=== PATIENT | male | born 1980 | race Caucasian/White ===

== ENCOUNTER → 2019-11-24 16:11 | Outpatient (BNVA) | payer MEDICAID, SELFPAY | PROVIDERS: Family Provider Family Medicine; PCP Family Medicine; Visit Provider Nurse Practitioner Family | DX: R50.9 Fever, unspecified; J01.40 Acute pansinusitis, unspecified | CPT/HCPCS: 87804 ==

== ENCOUNTER 2020-03-19 17:22 | Emergency (ER) | payer MEDICAID, SELFPAY ==
[2020-03-19 18:09] VITALS: BP 183/109; PULSE 73; RESP 18; TEMP 36.8; O2SAT 96; BMI 34.7
--- NOTE | 2020-03-19 20:26 | PC.NURSE ---
Addendum entered by Sherine Longo RN 03/19/20 20:29: patient states his back started hurting about three weeks ago and has progressively gotten worse. Patient states in the last few days it has been much more painful in his lower back. Patient states he has been to a chiropractor but it is not a sustained relief method. Patient states he has pain radiating down his right leg to the knee area. Original Note: patient states his back started hurting about two weeks ago and has progressively gotten worse. Patient states in the last few days it has been much more painful in his lower back. Patient states he has been to a chiropractor but it is not a sustained relief method. Patient states he has pain radiating down his left leg to the knee area.
--- NOTE | 2020-03-19 20:26 | W.ED.BACK ---
HPI - Back Pain/Injury General: Chief Complaint: Back Pain/Injury Stated Complaint: LOWER BACK PAIN Time Seen by Provider: 03/19/20 20:24 Source: patient Mode of arrival: ambulatory Limitations: no limitations History of Present Illness: HPI Narrative: Patient comes in today with complaints of low back pain radiating down his right leg. Patient has a history of back pain but is been worse over the last 3 weeks. Patient has sought treatment with chiropractor without any relief. Patient has muscle tenderness on palpation of the lowers right lumbar area. Patient appears well. Patient appears in mild to moderate pain. Review of Systems General: Reports: 10 or more systems reviewed and unremarkable except in HPI and below Musc: Reports: back pain PFS ED PFSH: Social History (Updated 11/24/19 @ 16:11 by Vanessa Mckinnon LPN) Smoking and tobacco status: never smoked Alcohol intake: current Alcohol intake frequency: holidays/special occasions only Physical Exam Const: COMMON NORMALS: no acute distress and patient oriented x3 GENERAL APPEARANCE: cooperative HENMT: COMMON NORMALS: normocephalic, TM's normal bilaterally and Normal external nose present HEAD & SCALP: normal to inspection and normocephalic NOSE: Normal external nose present TYMPANIC MEMBRANE: TM's normal bilaterally MOUTH: Normal oral and palatal mucosa present THROAT: posterior oropharynx normal Eye: GENERAL EYE: appearance normal, both eyes and all related structures Neck/C-Spine: COMMON NORMALS: full ROM Lymph: LYMPHATIC: no lymphadenopathy noted Chest: COMMONS NORMALS: normal inspection of the chest Resp: COMMON NORMALS: normal respiratory effort EFFORT & INSPECTION: Yes able to speak in complete sentences Cardio: COMMON NORMALS: regular rate and regular rhythm RATE: regular rate RHYTHM: regular rhythm GI: COMMON NORMALS: non-tender : COMMON NORMALS: Yes no CVA tenderness BLADDER/KIDNEY EXAM: Yes no CVA tenderness Back/Pelvis: COMMON NORMALS: no CVA tenderness LUMBAR SPINE/LOWER BACK: Yes lumbar spinal tenderness Lumbar spinal tenderness location: L4 Extremity: COMMON NORMALS: normal to inspection Neuro: COMMON NORMALS: patient oriented x3 and moves all extremities Psych: COMMON NORMALS: mental status grossly normal and cooperative Skin: COMMON NORMALS: no rashes or lesions noted GENERAL SKIN EXAM: no rashes or lesions noted Course Vital Signs: Vital signs: Vital Signs Temperature 98.2 F 03/19/20 18:09 Pulse Rate 69 05/22/20 20:28 Respiratory Rate 16 03/19/20 20:28 Blood Pressure 140/86 03/19/20 20:28 Pulse Oximetry 96 03/19/20 20:28 MDM - Back Pain/Injury MDM Narrative: Medical decision making narrative: Patient comes in today for complaints of low back pain for about the last 3 weeks. 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 Patient appears well. Vital signs are normal except for some mild elevation in blood pressure. Patient has pain with leg lift on both the lower extremities at about 30 degrees. Distal pulses to lower extremities are normal. Patient has palpable tenderness around the L4-L5 area of the lumbar spine. X-ray of the spine notes no fracture and may be some mild disc loss at L4-L5. Differential diagnosis includes lumbar strain, intervertebral disc disease, facet arthropathy. Reviewed exam with patient with recommendations for treatment and follow-up. Patient reported understanding and agreed to plan. Discharge Plan Discharge Patient Disposition: Home, Self-Care Clinical Impression: Lumbar radiculopathy Condition: Stable Prescriptions: New diclofenac sodium 75 mg tablet,delayed release (DR/EC) 75 mg PO BID Qty: 20 RF: 0 cyclobenzaprine 10 mg tablet 10 mg PO Q8H Qty: 30 RF: 0 Discharge Orders: Discharge Order (Routine); Ordered 03/19/20 Ordered By: Ganesh Sheikh Discharge Diet: Usual diet Discharge Activity: Increase activity as tolerated Patient Instructions: Back Pain (ED) Activity Restrictions/Additional Instructions: Activity as tolerated. Drink plenty of water with medication. Follow-up with primary care in 1 week for recheck and further evaluation as needed. Return to the ER for high fever or changes in bowel or bladder habits. Back pain often will usually wax and wane and for the most part will resolve on its own without the use of medication. It is important to follow-up with primary care for further treatment and evaluation especially for persistent back pain. At this time x-ray showed no significant abnormality to the spine. Soft tissue is often hard to seen on x-rays and a disc bulge will need to be evaluated per MRI. A primary care provider can assist with this treatment and plan. Coding Level of Care Code ED [employer] Consultant for [facility] Fwd Exam Comprehensive
[2020-03-19 20:28] VITALS: BP 140/86; PULSE 69; RESP 16; O2SAT 96
--- NOTE | 2020-03-19 20:33 | XRR_ITS ---
PROCEDURE INFORMATION: Exam: XR Lumbosacral Spine, 2 or 3 Views Exam date and time: 03/19/2020 9:01 PM Age: 40 years old Clinical indication: Low back pain TECHNIQUE: Imaging protocol: XR of the lumbosacral spine, 2 or 3 views. COMPARISON: No relevant prior studies available. FINDINGS: Vertebrae: Vertebral body height is maintained. No subluxation. Normal bone mineralization. Mild loss of disc space height at L4-L5. Soft tissues: No paravertebral soft tissue abnormality. No radiopaque foreign body. XR/XR lumbar spine 2-3V* [id number] IMPRESSION: 1. No acute fracture of the lumbar spine. CT scan would be recommended if there is continuing clinical concern for fracture. 2. Mild loss of disc space height at L4-L5.
--- NOTE | 2020-03-19 20:51 | PC.NURSE ---
patient to CT
[2020-03-19] MEDS: orphenadrine 30 mg/mL Inj 2 mL 60 MG IM (21:16)
[2020-03-19] MEDS: ketorolac 30 mg/mL INJ IM (21:16)
[2020-03-19 21:49] VITALS: BP 152/93; PULSE 63; RESP 14; O2SAT 97
--- NOTE | 2020-03-23 10:51 | DCPLANNER ---
Addendum entered by Becky Daley 03/23/20 11:16: Patient returned director case phone call, and stated that he would like help in getting established with a primary care physician. underwriting manager called the office of [facility], Vani Solorio, spoke with Nubia a follow up appointment was scheduled for Monday, March 23, 2020 at 1:15 with Lyndsey. underwriting manager called patient and informed patient of the scheduled appointment. Patient stated that he would attend the appointment. Original Note: underwriting manager had message to speak with patient about getting established with a primary care physician. underwriting manager called [phone], unable to speak with patient at this time, a voice mail was left for patient to return director case phone call.
--- NOTE | 2020-03-25 14:23 | DCPLANNER ---
Patient attended appointment scheduled for 03.23.20 with Internal Medicine with Nat Solorio.
== END 2020-03-19 21:54 | disposition home or self-care (01) ==
PROVIDERS: Emergency Provider Nurse Practitioner Family
DX: M54.16 Radiculopathy, lumbar region (principal)
CPT/HCPCS: 12345; 72100; 96372; 99281; 99283; J1885; J2360

== ENCOUNTER → 2020-03-23 16:27 | Outpatient (BNVA) | payer MEDICAID, SELFPAY | PROVIDERS: Visit Provider Nurse Practitioner Family | DX: M54.10 Radiculopathy, site unspecified (principal); Z98.890 Other specified postprocedural states; Z87.81 Personal history of (healed) traumatic fracture; R53.83 Other fatigue; I10 Essential (primary) hypertension; M54.9 Dorsalgia, unspecified; E11.9 Type 2 diabetes mellitus without complications; R79.89 Other specified abnormal findings of blood chemistry | CPT/HCPCS: 80053; 83036; 85025 ==

== ENCOUNTER 2020-04-05 08:38 | Outpatient (CLI) | payer MEDICAID, SELFPAY ==
--- NOTE | 2020-04-05 08:45 | MR_ITS ---
WS: [id number] MRI LUMBAR SPINE NONCONTRAST HISTORY: Back pain with radiation. COMPARISON: None available. TECHNIQUE: Sagittal and axial multisequence imaging is submitted. 7 cervical and 12 thoracic vertebral bodies. There are 5 lumbar type vertebral bodies. L5 sacralizati on on the LEFT at L5-S1. There is a rudimentary disc at L5-S1. Posterior alignment is normal. Mild disc space narrowing and desiccation at L4-5. Conus terminates normally at T12. L1-L2: Normal. L2-L3: Normal. L3-L4: Mild annular disc bulging. Mild ligamentum flavum and facet arthritis with fluid in the facet joints. There is very mild narrowing of the central canal and subarticular recesses. L4-L5: Diffuse annular disc bulging and osteophytic ridging. There is a central disc protrusion with annular fissure encroaching upon the thecal sac. There is an additional protrusion extending into the LEFT subarticular recess and proximal foramen. Moderate central, bilateral subarticular recess and L EFT foraminal stenosis. L5-S1: Annular disc bulging with rudimentary disc. Paravertebral soft tissues are negative. MR/MR lumbar spine wo con* [id number] IMPRESSION: 1. 5 lumbar type vertebral bodies with L5 partially sacralized on the LEFT. 2. Central disc protrusion with annular fissure and LEFT subarticular recess a nd proximal foraminal disc protrusion at L4-5 with significant encroachment upo n the thecal sac. 3. Moderate central, bilateral subarticular recess and LEFT foraminal stenosis at L4-5 due to combination of disc protrusion, facet and ligamentum flavum dis ease. 4. Mild central and subarticular recess stenosis at L3-4.
== END 2020-04-05 08:39 | disposition home or self-care (01) ==
LOC: RADSHAW 08:40
PROVIDERS: PCP Nurse Practitioner Family; Visit Provider Nurse Practitioner Family
DX: M54.9 Dorsalgia, unspecified (principal); M54.10 Radiculopathy, site unspecified; M51.26 Other intervertebral disc displacement, lumbar region; M48.061 Spinal stenosis, lumbar region without neurogenic claudication
CPT/HCPCS: 72148

== ENCOUNTER → 2020-04-15 08:08 | Outpatient (BNVA) | payer MEDICAID, SELFPAY | PROVIDERS: PCP Nurse Practitioner Family; Referring Provider Nurse Practitioner Family; Visit Provider Anesthesiology Pain Medicine | DX: M54.41 Lumbago with sciatica, right side (principal); M54.42 Lumbago with sciatica, left side; M47.816 Spondylosis without myelopathy or radiculopathy, lumbar region; M48.061 Spinal stenosis, lumbar region without neurogenic claudication; M54.10 Radiculopathy, site unspecified; F17.220 Nicotine dependence, chewing tobacco, uncomplicated; Z79.891 Long term (current) use of opiate analgesic | CPT/HCPCS: 99204; 99205 ==

== ENCOUNTER → 2020-04-28 13:40 | Outpatient (BNVA) | payer MEDICAID, SELFPAY | PROVIDERS: PCP Nurse Practitioner Family; Visit Provider Anesthesiology Pain Medicine | DX: M54.10 Radiculopathy, site unspecified (principal); M48.061 Spinal stenosis, lumbar region without neurogenic claudication; Z79.891 Long term (current) use of opiate analgesic | CPT/HCPCS: 64483; 64484; J1040; J3490 ==

== ENCOUNTER → 2020-05-17 14:09 | Outpatient (BNVA) | payer MEDICAID, SELFPAY | PROVIDERS: PCP Nurse Practitioner Family; Visit Provider Anesthesiology Pain Medicine | DX: M54.42 Lumbago with sciatica, left side (principal); M54.41 Lumbago with sciatica, right side; M54.9 Dorsalgia, unspecified; F17.220 Nicotine dependence, chewing tobacco, uncomplicated | CPT/HCPCS: 64483; 64484; J1040; J3490 ==

== ENCOUNTER → 2020-06-03 13:44 | Outpatient (BNVA) | payer MEDICAID, SELFPAY | PROVIDERS: PCP Nurse Practitioner Family; Visit Provider Anesthesiology Pain Medicine | DX: M47.816 Spondylosis without myelopathy or radiculopathy, lumbar region (principal); M51.26 Other intervertebral disc displacement, lumbar region; M48.061 Spinal stenosis, lumbar region without neurogenic claudication; M54.10 Radiculopathy, site unspecified; F17.220 Nicotine dependence, chewing tobacco, uncomplicated; Z79.891 Long term (current) use of opiate analgesic | CPT/HCPCS: 99213; 99214 ==

== ENCOUNTER → 2020-06-14 14:06 | Outpatient (BNVA) | payer MEDICAID, SELFPAY | PROVIDERS: PCP Nurse Practitioner Family; Visit Provider Anesthesiology Pain Medicine | DX: M47.816 Spondylosis without myelopathy or radiculopathy, lumbar region (principal); M54.42 Lumbago with sciatica, left side; M54.41 Lumbago with sciatica, right side; M54.9 Dorsalgia, unspecified | CPT/HCPCS: 64493; 64494; J1030; J3490 ==

== ENCOUNTER 2020-12-05 23:13 | Emergency (ER) | payer MEDICAID, SELFPAY ==
[2020-12-05 23:25] VITALS: BP 198/118; PULSE 88; RESP 18; TEMP 36.7; O2SAT 97; BMI 34.7
--- NOTE | 2020-12-06 00:21 | XRR_ITS ---
PROCEDURE INFORMATION: Exam: XR Right Elbow Exam date and time: 12/06/2020 12:42 AM Age: 40 years old Clinical indication: Elbow; Right; Patient HX: Rue pain/swelling x 1 month; Additional info: RT elbow pain TECHNIQUE: Imaging protocol: XR Right elbow. Views: Frontal, lateral, and oblique views. COMPARISON: No relevant prior studies available. FINDINGS: Bones/joints: No acute bony abnormality identified. A small triceps tendon enthesis of the olecranon is present. Soft tissues: Normal. XR/XR elbow RT min 3V* [id number] IMPRESSION: 1. No acute bony abnormality identified. 2. Mild triceps insertional enthesopathy.
--- NOTE | 2020-12-06 00:21 | ED_ITS ---
HPI - Extremity Problem General: Chief complaint: Extremity Problem,Nontraumatic Stated complaint: RUE PAIN/SWELLING Time Seen by Provider: 12/06/20 00:21 Source: patient Mode of arrival: ambulatory Limitations: no limitations History of Present Illness: HPI Narrative: 40-year-old male patient presents to the emergency department with 6-month onset of right elbow pain. 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 [id number], he reports previous right elbow effusion with drainage of greater than 30 cc from his right elbow greater than 6 months ago. He states pain and swelling went down but returned Sunday. He reports placed in Obed wrap, compression to the right elbow, has greatly improved, he states still hurts and does not know why. He also presents to the emergency department with elevated blood pressure reading. He reports stopped his blood pressure medication 2 to 3 months ago, was not working . He states was on lisinopril 10 mg daily along with another blood pressure medication. He states got sick of messing with it so he stopped medication. He denies chest pain, shortness of breath or headache. Reports his blood pressure at home has been as high as 210/150. MD Complaint: extremity pain (rt elbow) and extremity swelling (rt elbow) Pain Consistency: intermittent Location: right and upper extremity Severity scale (1-10): 6 Quality: burning, aching and dull Relieving factors: cold therapy, immobilization, rest and other (compression) Exacerbating factors: other (movement) Associated symptoms: Reports no associated symptoms; Deny chest pain, fever(s) or rash Review of Systems General: Reports: 10 or more systems reviewed and unremarkable except in HPI and below Const: Denies: fever(s), chills or diaphoresis Eyes: Denies: blurry vision or eye redness ENMT: Denies: throat pain, dental pain or disequilibrium Card: Denies: chest pain, palpitations or irregular heart rhythm Resp: Denies: dyspnea, productive cough, non-productive cough or wheezing GI: Denies: abdominal pain, nausea or vomiting : Denies: flank pain or dysuria Musc: Reports: joint pain (rt elbow) and joint swelling (rt elbow); Denies: neck pain or back pain Skin/Breast: Denies: rash or pruritus Neuro: Denies: headache(s), weakness in extremities or behavioral changes Psych: Denies: anxiety, depression, change in appetite or irritability Jean-Paul/Lymph: Denies: easy bruising PFSH ED PFSH: Medical History (Updated 12/06/20 @ 01:17 by FELECIA Felix) HTN (hypertension) with goal to be determined Surgical History Status post ORIF of fracture of ankle Family History Other Cancer Diabetes Stroke Social History Smoking and tobacco status: current every day smoker smokeless tobacco Smokeless tobacco user: chewing tobacco Alcohol intake: current Alcohol intake frequency: holidays/special occasions only History of recent travel: No Physical Exam Const: COMMON NORMALS: no acute distress, patient oriented x3, healthy appearing and alert GENERAL APPEARANCE: cooperative, comfortable and well hydrated HENMT: COMMON NORMALS: normocephalic, Normal external nose present and moist oral mucous membranes HEAD & SCALP: normocephalic NOSE: Normal external nose present Eye: COMMON NORMALS: Equal, round and reactive pupils present and EOMs intact bilaterally GENERAL EYE: appearance normal, both eyes and all related structures PUPIL: Yes Equal, round and reactive pupils present Neck/C-Spine: COMMON NORMALS: full ROM and no lymphadenopathy GENERAL: Yes normal visual inspection and Yes trachea midline CERVICAL SPINE: Yes cervical ROM normal Lymph: LYMPHATIC: no lymphadenopathy noted Chest: COMMONS NORMALS: normal inspection of the chest Resp: COMMON NORMALS: normal respiratory effort and clear to auscultation bilaterally AUSCULTATION: clear to auscultation bilaterally Cardio: COMMON NORMALS: regular rhythm, S1 normal heart sound present, S2 normal heart sound present and Peripheral pulses 2+ throughout RHYTHM: regular rhythm HEART SOUNDS: S1 normal heart sound present and S2 normal heart sound present PERIPHERAL PULSES: Peripheral pulses 2+ throughout GI: COMMON NORMALS: Soft to palpation and non-tender INSPECTION: Yes normal to inspection PALPATION: Yes Soft to palpation : COMMON NORMALS: Yes no CVA tenderness BLADDER/KIDNEY EXAM: Yes no CVA tenderness Back/Pelvis: COMMON NORMALS: no CVA tenderness and thoracic and lumbar spine normal to inspection Extremity: COMMON NORMALS: normal to inspection, full ROM, capillary refill normal and no pedal edema GENERAL: Yes normal exam except as noted RIGHT UPPER EXTREMITY: Yes elbow joint (normal inspection) Right elbow: Yes inspection, Yes palpation (pain over the medial tendon, pain posterior, no edema/erythema), Yes ROM (full with pain at supination) and Yes neurovascular exam (distally intact) Neuro: COMMON NORMALS: patient oriented x3 and no focal motor deficits SENSORIUM/ORIENTATION: Yes alert Psych: COMMON NORMALS: mental status grossly normal, Normal thought process present and cooperative ACTIVITY/MOTOR BEHAVIOR: Yes appropriate eye contact THOUGHT PROCESS: Normal thought process present Skin: COMMON NORMALS: no rashes or lesions noted and turgor normal GENERAL SKIN EXAM: no rashes or lesions noted and turgor normal Course Vital Signs: Vital signs: Vital Signs Temperature 98.0 F 12/05/20 23:25 Pulse Rate 81 12/06/20 00:59 Respiratory Rate 18 12/06/20 00:59 Blood Pressure 179/101 12/06/20 00:59 Pulse Oximetry 94 12/06/20 00:59 MDM - Extremity (Nontraumatic) MDM Narrative: Medical decision making narrative: 40-year-old male patient presents to the emergency department with continued right elbow pain x6 months. 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 No evidence of effusion/bursitis upon exam. X-ray of the right elbow without acute findings. Radiology interpretation pending. He declined right arm sling, plan to have patient follow-up with orthopedic specialty for right elbow complaint and continue follow-up with primary care due to blood pressure readings. I discussed at length with patient need for blood pressure control. He agrees to take lisinopril if prescription is provided. He also agrees for follow-up with PCP. Discharge Plan Discharge Patient Disposition: Home Clinical Impression: Elbow tendinitis Elbow pain Qualifiers: Laterality: right Qualified Code(s): M25.521 - Pain in right elbow HTN (hypertension) Qualifiers: Hypertension type: essential hypertension Qualified Code(s): I10 - Essential (primary) hypertension Condition: Stable Prescriptions: New IBU 800 mg tablet 800 mg PO TID PRN (Reason: pain) Qty: 30 RF: 0 Medrol (Tam) 4 mg tablets,dose pack See Rx Instructions .ROUTE .COMPLEX Qty: 21 RF: 0 lisinopril 10 mg tablet 10 mg PO DAILY Qty: 30 RF: 0 No Action lisinopril 10 mg tablet 10 mg PO DAILY Qty: 30 RF: 0 pregabalin [Lyrica] 100 mg capsule 100 mg PO BID 30 Days Qty: 60 RF: 0 acetaminophen-codeine 300-30 mg tablet 1 tab PO BID PRNRF: 0 cyclobenzaprine 10 mg tablet 10 mg PO TID RF: 0 nitroglycerin 0.4 mg tablet, sublingual 0.4 mg SUBLINGUAL ONCE PRNRF: 0 Discharge Orders: Discharge ED (Routine); Ordered 12/06/20 Ordered By: Vaishnavi Navas Referrals: Laura Solorio APRN [Primary Care Provider] - Discharge Diet: Cardiac Discharge Activity: Limit activity as instructed Patient Instructions: Chronic Hypertension (ED), Elbow Sprain (ED), Tendinitis (ED) Activity Restrictions/Additional Instructions: Return to the emergency department if you develop redness swelling or increased pain of the right arm Referral has been placed to orthopedic specialty for right elbow pain Follow-up with your primary care provider in regards to blood pressure readings, blood pressure was elevated today Take lisinopril daily for blood pressure, take blood pressure readings daily and record, take to your primary care provider director of student financial services will be contacting you with an appointment for orthopedic specialty due to continued right elbow pain and swelling director of student financial services will also be contacting you with an appointment by primary care for uncontrolled blood pressure. Stand Alone Forms: Work/School Release Coding Level of Care Code ED Cloth Carrier for Mario Fwd Exam Comprehensive
[2020-12-06] MEDS: ibuprofen 800 mg tablet PO (00:27)
[2020-12-06 00:59] VITALS: BP 179/101; PULSE 81; RESP 18; O2SAT 94
[2020-12-06] MEDS: lisinopril 10 mg Tablet PO (01:44)
[2020-12-06 01:47] VITALS: BP 183/112; PULSE 80; RESP 17; O2SAT 96
--- NOTE | 2020-12-06 09:37 | DCPLANNER ---
market sales manager had message to schedule a follow up appointment for patient with ortho. market sales manager called the ortho clinic, spoke with Denise, gave clinic patients information. market sales manager was told that patients information would be printed and reviewed. Clinic will call patient with appointment information.
--- NOTE | 2020-12-08 11:02 | DCPLANNER ---
electrical tech/project manager also had message to schedule a follow up appointment for patient with his primary care physician. electrical tech/project manager called the office of Cassandra Solorio, a follow up appointment was scheduled for Sunday, December 15, 2020 at 3:[address] Hummel. electrical tech/project manager called phone number [phone], unable to speak with patient to give him the appointment information. A voicemail was left for patient to return lining caser phone call.
--- NOTE | 2020-12-09 12:15 | DCPLANNER ---
manager mba called patient again today at phone number [phone], unable to speak with patient at this time, a voicemail was left for patient to return caseworker protective services phone call.
--- NOTE | 2020-12-15 11:24 | DCPLANNER ---
Patient had a follow up appointment scheduled for 12.13.20 with ortho - patient did attend appointment. Patient had a follow up appointment scheduled for 12.15.20 with internal medicine - appointment cancelled.
== END 2020-12-06 01:47 | disposition home or self-care (01) ==
PROVIDERS: Emergency Provider Nurse Practitioner Family; PCP Nurse Practitioner Family
DX: M77.8 Other enthesopathies, not elsewhere classified (principal); I10 Essential (primary) hypertension; F17.220 Nicotine dependence, chewing tobacco, uncomplicated
CPT/HCPCS: 12345; 73080; 99281; 99283

== ENCOUNTER → 2021-02-08 07:58 | Outpatient (BNVA) | payer MEDICAID, SELFPAY | PROVIDERS: PCP Nurse Practitioner Family; Visit Provider Psychiatry & Neurology Neurology | DX: R20.0 Anesthesia of skin (principal); M54.2 Cervicalgia; M25.521 Pain in right elbow; F17.210 Nicotine dependence, cigarettes, uncomplicated | CPT/HCPCS: 95886; 95908 ==

== ENCOUNTER → 2021-08-16 18:51 | Outpatient (BNVA) | payer MEDICAID, SELFPAY | PROVIDERS: PCP Nurse Practitioner Family; Visit Provider Registered Nurse Neonatal Intensive Care | DX: Z20.822 Contact with and (suspected) exposure to COVID-19 (principal) | CPT/HCPCS: 87635 ==

== ENCOUNTER 2021-08-20 19:44 | Emergency (ER) | payer MEDICAID, SELFPAY ==
[2021-08-20] VITALS (7 sets, daily range): BP systolic 124–133; BP diastolic 61–84; PULSE 100; RESP 18–20; TEMP 38.3; O2SAT 86–95; BMI 28.0
--- NOTE | 2021-08-20 20:15 | XRR_ITS ---
PROCEDURE INFORMATION: Exam: XR Chest Exam date and time: 08/20/2021 8:15 PM Age: 41 years old Clinical indication: Dyspnea; Additional info: Covid+, SOB, decreased sao2 TECHNIQUE: Imaging protocol: XR of the chest. Views: 1 view. COMPARISON: CR Chest 1 [place] [id number] 10/06/2019 4:21 PM FINDINGS: Lungs: Focal consolidation in the lateral right lung base. The left lung is clear. Pleural spaces: There is no pleural effusion or pneumothorax. Heart/Mediastinum: There is mild enlargement of the cardiac silhouette. Bones/joints: Bones are unremarkable. XR/XR chest 1V portable [id number] IMPRESSION: Right lower lobe consolidation. Possible infection. Radiation Dose CTDIVOL = (mGy): DLP = (mGy-cm)
--- NOTE | 2021-08-20 20:21 | W.ED.COVID ---
Documented by User: KATERYNA Nazario 08/20/21 23:18 HPI - COVID General: Chief Complaint: Shortness of Breath/Dyspnea Stated Complaint: Covid +, sob Time Seen by Provider: 08/20/21 20:07 Triage information: No fever, cough or shortness of breath. Exposure to COVID + person last 14 days History of Present Illness: HPI Narrative: Symptoms started about Sunday last week. Patient says been nauseated he hurts all over cough has some shortness of breath he says sats have been bouncing back and forth at home. complaint: known COVID positive Prior covid testing: yes, results known Prior testing date: 08/16/21 COVID 19 common symptoms: positive fever(s), chills, non-productive cough, dyspnea, body aches, headache(s) and nausea; negative throat pain or nasal congestion COVID 19 other sytmptoms: negative chest pain Onset (ago): day(s) Severity: mild Pertinent comorbid conditions: hypertension Treatment prior to arrival: acetaminophen and ibuprofen COVID Results: SARS-CoV-2 RNA (RT-PCR) Detected (NOT DETECTED) A 08/16/21 18:51 08/16/21 Review of Systems Const: Reports: fever(s), chills and body aches Eyes: Denies: change in vision or blurry vision ENMT: Denies: throat pain or nasal congestion Card: Denies: chest pain or dyspnea on exertion Resp: Reports: dyspnea and non-productive cough GI: Reports: nausea : Denies: difficulty urinating Musc: Denies: extremity pain Skin/Breast: Denies: rash Neuro: Reports: headache(s) Psych: Denies: anxiety or depression Jean-Paul/Lymph: Denies: easy bruising PFSH ED PFSH: Medical History HTN (hypertension) with goal to be determined Surgical History Status post ORIF of fracture of ankle Family History Other Cancer Diabetes Stroke Social History Smoking and tobacco status: current every day smoker smokeless tobacco Smokeless tobacco user: chewing tobacco Alcohol intake: current Alcohol intake frequency: holidays/special occasions only History of recent travel: No Physical Exam Const: COMMON NORMALS: no acute distress, average body habitus and patient oriented x3 HENMT: COMMON NORMALS: normocephalic HEAD & SCALP: normal to inspection and normocephalic FACE & SINUS: normal facial exam Eye: COMMON NORMALS: conjunctivae normal GENERAL EYE: appearance normal, both eyes and all related structures CONJUNCTIVA: Yes conjunctivae normal Neck/C-Spine: COMMON NORMALS: no JVD Chest: COMMONS NORMALS: normal inspection of the chest Resp: COMMON NORMALS: normal respiratory effort Cardio: COMMON NORMALS: no JVD, regular rate and regular rhythm RATE: regular rate RHYTHM: regular rhythm GI: INSPECTION: Yes normal to inspection Extremity: COMMON NORMALS: normal to inspection and full ROM Neuro: COMMON NORMALS: patient oriented x3 Course Vital Signs: Vital signs: Vital Signs Temperature 100.9 F H 08/20/21 23:02 Pulse Rate 100 08/20/21 19:57 Respiratory Rate 18 08/20/21 23:02 Blood Pressure 133/61 08/20/21 23:02 Pulse Oximetry 93 08/20/21 23:05 MDM - COVID MDM Narrative: Medical decision making narrative: Patient positive Covid. Patient said he had O2 saturation 88 to 92% at home. Patient presented here with sats 93 to 94%. Complained about body aches ,headache,shortness of breath. Patient states she is not been able to tolerate fluids or food well. Patient got a water hung for Bam infusion and sats dropped down and the high 80s. Patient placed on O2 at 2 L. Infusion restarted. Patient sats went back up to 93 to 94% on 2 L. Home O2 was ordered after O2 evaluation. Patient follow-up primary care provider or return here if worsens. Lab Data: Labs: Lab Results 08/20/21 08/20/21 20:37 20:37 WBC 3.6 10^3/uL L 10^ 3/uL (4.0-10.0) RBC 5.44 10^6/uL H 10 ^6/uL (4.1-5.3) Hgb 16.6 g/dL g/dL (11.7-16.6) Hct 49.6 % % (42.0-52.0) MCV 91.2 fl fl (80-94) MCH 30.5 pg pg (28.0-34.0) MCHC 33.5 g/dL g/dL (30.0-36.0) RDW 12.1 % % (12.1-15.1) Plt Count 191 10^3/cmm 10^3 /cmm (130-400) MPV 10.4 fL fL (7.4-10.4) Neut % (Auto) 61.8 % % Lymph % (Auto) 24.9 % % [place] % (Auto) 12.7 % % Eos % (Auto) 0.0 % % Baso % (Auto) 0.3 % % Neut # (Auto) 2.24 10^3/uL 10^3 /uL (1.8-7.7) Lymph # (Auto) 0.9 10^3/uL 10^3/ uL (0.8-4.8) [place] # (Auto) 0.5 10^3/uL 10^3/ uL (0.2-0.9) Eos # (Auto) 0.0 10^3/uL 10^3/ uL (0.0-0.8) Baso # (Auto) 0.0 10^3/uL 10^3/ uL (0.0-0.1) Nucleated RBC % (a uto) 0 % % Nucleated RBCs # 0.0 /100WBC /100W BC Sodium 136 mmol/L mmol/L (136-145) Potassium 4.4 mmol/L mmol/L (3.5-5.1) Chloride 98 mmol/L mmol/L (98-107) Carbon Dioxide 26 mmol/L mmol/L (22-29) Anion Gap 16.4 (5-19) BUN 9 mg/dL mg/dL (6-20) Creatinine 1.4 mg/dL H mg/dL (0.7-1.2) GFR Calculation 56.4 mL/min L mL/ min (90-130) Glucose 96 mg/dL mg/dL (65-115) Calculated Osmolal ity 281 mOsm/kg L mOs m/kg (285-295) Calcium 8.4 mg/dL L mg/dL (8.5-10.5) COVID Results: SARS-CoV-2 RNA (RT-PCR) Detected (NOT DETECTED) A 08/16/21 18:51 08/16/21 Discharge Plan Discharge Patient Disposition: Home Clinical Impression: COVID-19 Condition: Stable Prescriptions: New Tessalon Perles 100 mg capsule 100 mg PO TID PRN (Reason: cough) Qty: 14 RF: 0 Zithromax Z-Tam 250 mg tablet See Rx Instructions PO .COMPLEX Qty: 6 RF: 0 Decadron 6 mg tablet 6 mg PO DAILY Qty: 7 RF: 0 No Action lisinopril 10 mg tablet 10 mg PO DAILY Qty: 30 RF: 0 nitroglycerin 0.4 mg tablet, sublingual 0.4 mg SUBLINGUAL ONCE PRNRF: 0 Discharge Orders: Discharge ED (Routine); Ordered 08/20/21 Ordered By: Jax Bermeo Discharge Diet: Advance as tolerated Discharge Activity: Increase activity as tolerated Patient Instructions: Viral Syndrome (ED) Activity Restrictions/Additional Instructions: Follow-up with medical provider as directed. Take medications as prescribed. Return to the ER or your medical provider if condition worsens. Please read and understand discharge instructions. If any questions ask please. Home O2 at 2 L per nasal cannula to maintain sats above 92%. Can increase to 3 L if needed to maintain sats above 92%. Stand Alone Forms: Work/School Release Coding Level of Care Code ED Fire Fighting Equipment Specialist for g Fwd Exam Comprehensive Documented by User: Que Boo, 08/20/21 23:46 HPI - COVID General: Chief Complaint: Shortness of Breath/Dyspnea Stated Complaint: Covid +, sob Time Seen by Provider: 08/20/21 20:07 COVID Results: SARS-CoV-2 RNA (RT-PCR) Detected (NOT DETECTED) A 08/16/21 18:51 08/16/21 [facility] ED PFSH: Medical History HTN (hypertension) with goal to be determined Surgical History Status post ORIF of fracture of ankle Family History Other Cancer Diabetes Stroke Social History Smoking and tobacco status: current every day smoker smokeless tobacco Smokeless tobacco user: chewing tobacco Alcohol intake: current Alcohol intake frequency: holidays/special occasions only History of recent travel: No Course Vital Signs: Vital signs: Vital Signs Temperature 100.9 F H 08/20/21 23:02 Pulse Rate 100 08/20/21 19:57 Respiratory Rate 18 08/20/21 23:02 Blood Pressure 133/61 08/20/21 23:02 Pulse Oximetry 93 08/20/21 23:05 MDM - COVID MDM Narrative: Medical decision making narrative: This patient was originally seen by KATERYNA Smith. I agree with his history, evaluation, and treatment. Lab Data: Labs: Lab Results 08/20/21 08/20/21 20:37 20:37 WBC 3.6 10^3/uL L 10^ 3/uL (4.0-10.0) RBC 5.44 10^6/uL H 10 ^6/uL (4.1-5.3) Hgb 16.6 g/dL g/dL (11.7-16.6) Hct 49.6 % % (42.0-52.0) MCV 91.2 fl fl (80-94) MCH 30.5 pg pg (28.0-34.0) MCHC 33.5 g/dL g/dL (30.0-36.0) RDW 12.1 % % (12.1-15.1) Plt Count 191 10^3/cmm 10^3 /cmm (130-400) MPV 10.4 fL fL (7.4-10.4) Neut % (Auto) 61.8 % % Lymph % (Auto) 24.9 % % [place] % (Auto) 12.7 % % Eos % (Auto) 0.0 % % Baso % (Auto) 0.3 % % Neut # (Auto) 2.24 10^3/uL 10^3 /uL (1.8-7.7) Lymph # (Auto) 0.9 10^3/uL 10^3/ uL (0.8-4.8) [place] # (Auto) 0.5 10^3/uL 10^3/ uL (0.2-0.9) Eos # (Auto) 0.0 10^3/uL 10^3/ uL (0.0-0.8) Baso # (Auto) 0.0 10^3/uL 10^3/ uL (0.0-0.1) Nucleated RBC % (a uto) 0 % % Nucleated RBCs # 0.0 /100WBC /100W BC Sodium 136 mmol/L mmol/L (136-145) Potassium 4.4 mmol/L mmol/L (3.5-5.1) Chloride 98 mmol/L mmol/L (98-107) Carbon Dioxide 26 mmol/L mmol/L (22-29) Anion Gap 16.4 (5-19) BUN 9 mg/dL mg/dL (6-20) Creatinine 1.4 mg/dL H mg/dL (0.7-1.2) GFR Calculation 56.4 mL/min L mL/ min (90-130) Glucose 96 mg/dL mg/dL (65-115) Calculated Osmolal ity 281 mOsm/kg L mOs m/kg (285-295) Calcium 8.4 mg/dL L mg/dL (8.5-10.5) COVID Results: SARS-CoV-2 RNA (RT-PCR) Detected (NOT DETECTED) A 08/16/21 18:51 08/16/21 Discharge Plan Discharge Patient Disposition: Home Clinical Impression: COVID-19 Condition: Stable Prescriptions: New Tessalon Perles 100 mg capsule 100 mg PO TID PRN (Reason: cough) Qty: 14 RF: 0 Zithromax Z-Tam 250 mg tablet See Rx Instructions PO .COMPLEX Qty: 6 RF: 0 Decadron 6 mg tablet 6 mg PO DAILY Qty: 7 RF: 0 No Action lisinopril 10 mg tablet 10 mg PO DAILY Qty: 30 RF: 0 nitroglycerin 0.4 mg tablet, sublingual 0.4 mg SUBLINGUAL ONCE PRNRF: 0 Discharge Orders: Discharge ED (Routine); Ordered 08/20/21 Ordered By: Jax Bermeo Discharge Diet: Advance as tolerated Discharge Activity: Increase activity as tolerated Patient Instructions: Viral Syndrome (ED) Activity Restrictions/Additional Instructions: Follow-up with medical provider as directed. Take medications as prescribed. Return to the ER or your medical provider if condition worsens. Please read and understand discharge instructions. If any questions ask please. Home O2 at 2 L per nasal cannula to maintain sats above 92%. Can increase to 3 L if needed to maintain sats above 92%. Stand Alone Forms: Work/School Release Coding Level of Care Code ED Fire Fighting Equipment Specialist for Chg Fwd Exam Comprehensive
[2021-08-20] MEDS: sodium chloride 0.9% 1,000 ML 999 ML IV (20:30)
[2021-08-20 20:49] LABS: Basophils % 0.3 %; Hematocrit 49.6 % (42.0-52.0); Hemoglobin 16.6 g/dL (11.7-16.6); Lymphocytes # 0.9 10^3/uL (0.8-4.8); Lymphocytes % 24.9 %; Mean Corpuscular HGB Conc 33.5 g/dL (30.0-36.0); Mean Corpuscular Hemoglobin 30.5 pg (28.0-34.0); Mean Corpuscular Volume 91.2 fl (80-94); Mean Platelet Volume 10.4 fL (7.4-10.4); Monocytes # 0.5 10^3/uL (0.2-0.9); Monocytes % 12.7 %; Neutrophils # 2.24 10^3/uL (1.8-7.7); Neutrophils % 61.8 %; Nucleated Red Blood Cells % 0 %; Platelet Count 191 10^3/cmm (130-400); Red Blood Count 5.44 10^6/uL (4.1-5.3); Red Cell Distribution Width 12.1 % (12.1-15.1); White Blood Count 3.6 10^3/uL (4.0-10.0)
[2021-08-20] MEDS: ketorolac 30 mg/mL INJ IVP (21:06)
[2021-08-20 21:17] LABS: Anion Gap 16.4 (5-19); Blood Urea Nitrogen 9 mg/dL (6-20); Calcium 8.4 mg/dL (8.5-10.5); Carbon Dioxide 26 mmol/L (22-29); Chloride 98 mmol/L (98-107); Glomerular Filtration Rate 56.4 mL/min (90-130); Glucose 96 mg/dL (65-115); Osmolality Calculated 281 mOsm/kg (285-295); Potassium 4.4 mmol/L (3.5-5.1); Sodium 136 mmol/L (136-145)
--- NOTE | 2021-08-20 22:03 | PC.NURSE ---
pt taken off of o2 to evaluate need for home o2
== END 2021-08-20 23:31 | disposition home or self-care (01) ==
PROVIDERS: Emergency Provider Nurse Practitioner Family
DX: U07.1 COVID-19 (principal); I10 Essential (primary) hypertension; F17.220 Nicotine dependence, chewing tobacco, uncomplicated
CPT/HCPCS: 71045; 80048; 85025; 96365; 96375; 99284; J1885; J7030

== ENCOUNTER → 2021-11-01 16:47 | Outpatient (BNVA) | payer MEDICAID, SELFPAY | PROVIDERS: Visit Provider Nurse Practitioner | DX: R05.9 Cough, unspecified (principal); B34.9 Viral infection, unspecified | CPT/HCPCS: 87400 ==

== ENCOUNTER 2021-12-29 08:13 | Emergency (ER) | payer MEDICAID, SELFPAY ==
[2021-12-29 08:26] VITALS: BP 166/107; PULSE 64; RESP 14; TEMP 36.5; O2SAT 97; BMI 36.5
--- NOTE | 2021-12-29 08:43 | ED_ITS ---
Documented by User: KATERYNA Nazario 12/29/21 09:28 HPI - Weakness General: Chief complaint: Weakness Stated complaint: dehydration Time Seen by Provider: 12/29/21 08:18 History of Present Illness: Patient states he had diarrhea on Sunday and took Imodium. [place] weak at work and dizzy yesterday at work. Says he is not drinking much fluids and that he vomited a couple times yesterday. Patient said he had to take blood pressure medicine x1 year. Patient states that he has felt weak. Patient said he went to urgent care and they did not even take his vital signs and. Because he told him he needed IV fluids based on his symptoms. Patient is urinating. Associated symptoms: Denies chest pain, chills, fever(s), headache(s), nausea or vomiting Review of Systems Narrative: Feels weak. Const: Denies: fever(s), chills or body aches Eyes: Denies: eye discomfort ENMT: Denies: throat pain Card: Denies: chest pain Resp: Denies: dyspnea GI: Denies: abdominal pain, nausea or vomiting Skin/Breast: Denies: rash Neuro: Denies: headache(s) Psych: Denies: depression or suicidal ideation PFSH ED PFSH: Medical History HTN (hypertension) with goal to be determined Surgical History Status post ORIF of fracture of ankle Family History Other Cancer Diabetes Stroke Social History Smoking and tobacco status: current every day smoker smokeless tobacco Smokeless tobacco user: chewing tobacco Alcohol intake: current Alcohol intake frequency: holidays/special occasions only History of recent travel: No Physical Exam Const: COMMON NORMALS: no acute distress, patient oriented x3 and alert HENMT: COMMON NORMALS: normocephalic and external ears normal HEAD & SCALP: normocephalic EXTERNAL EAR: Yes external ears normal Eye: COMMON NORMALS: EOMs intact bilaterally Neck/C-Spine: COMMON NORMALS: no JVD Resp: COMMON NORMALS: normal respiratory effort and No use of accessory muscles Cardio: COMMON NORMALS: no JVD GI: INSPECTION: Yes normal to inspection Extremity: COMMON NORMALS: normal to inspection and full ROM Neuro: COMMON NORMALS: patient oriented x3 SENSORIUM/ORIENTATION: Yes alert Psych: COMMON NORMALS: mental status grossly normal Skin: COMMON NORMALS: no rashes or lesions noted GENERAL SKIN EXAM: no rashes or lesions noted Course Vital Signs: Vital signs: Vital Signs Temperature 97.7 F 12/29/21 08:26 Pulse Rate 72 12/29/21 10:00 Respiratory Rate 16 12/29/21 10:00 Blood Pressure 155/92 12/29/21 10:00 Pulse Oximetry 93 12/29/21 10:00 MDM - Weakness Medical Decision Making Patient presents with gastroenteritis symptoms. Vital signs are stable. Blood pressure slightly elevated and did come back down with lisinopril. Patient does not take blood pressure medication for the last year. Laboratory studies were negative for any concerning signs and there were no signs of dehydration. Patient was given lactated Ringer's. Patient encouraged to take medication directed follow-up primary care provider next week or 2. Patient can return to work on Sunday. Lab Data : 12/29/21 08:48 12/29/21 08:48 Laboratory Results WBC 5.4 10^3/uL (4.0-10.0) 12/29/21 08:48 RBC 5.17 10^6/uL (4.1-5.3) 12/29/21 08:48 Hgb 15.7 g/dL (11.7-16.6) 12/29/21 08:48 Hct 45.9 % (42.0-52.0) 12/29/21 08:48 MCV 88.8 fl (80-94) 12/29/21 08:48 MCH 30.4 pg (28.0-34.0) 12/29/21 08:48 MCHC 34.2 g/dL (30.0-36.0) 12/29/21 08:48 RDW 11.9 % (12.1-15.1) L 12/29/21 08:48 Plt Count 285 10^3/cmm (130-400) 12/29/21 08:48 MPV 9.7 fL (7.4-10.4) 12/29/21 08:48 Neut % (Auto) 53.0 % 12/29/21 08:48 Lymph % (Auto) 27.2 % 12/29/21 08:48 [place] % (Auto) 14.3 % 12/29/21 08:48 Eos % (Auto) 4.2 % 12/29/21 08:48 Baso % (Auto) 1.1 % 12/29/21 08:48 Neut # (Auto) 2.88 10^3/uL (1.8-7.7) 12/29/21 08:48 Lymph # (Auto) 1.5 10^3/uL (0.8-4.8) 12/29/21 08:48 [place] # (Auto) 0.8 10^3/uL (0.2-0.9) 12/29/21 08:48 Eos # (Auto) 0.2 10^3/uL (0.0-0.8) 12/29/21 08:48 Baso # (Auto) 0.1 10^3/uL (0.0-0.1) 12/29/21 08:48 Nucleated RBC % (auto) 0 % 12/29/21 08:48 Nucleated RBCs # 0.0 /100WBC 12/29/21 08:48 Sodium 137 mmol/L (136-145) 12/29/21 08:48 Potassium 3.9 mmol/L (3.5-5.1) 12/29/21 08:48 Chloride 104 mmol/L (98-107) 12/29/21 08:48 Carbon Dioxide 21 mmol/L (22-29) L 12/29/21 08:48 Anion Gap 15.9 (5-19) 12/29/21 08:48 BUN 13 mg/dL (6-20) 12/29/21 08:48 Creatinine 1.0 mg/dL (0.7-1.2) 12/29/21 08:48 GFR Calculation 83.2 mL/min (90-130) L 12/29/21 08:48 Glucose 111 mg/dL (65-115) 12/29/21 08:48 Calculated Osmolality 285 mOsm/kg (285-295) 12/29/21 08:48 Calcium 9.4 mg/dL (8.5-10.5) 12/29/21 08:48 Discharge Plan Discharge Patient Disposition: Home Clinical Impression: Gastroenteritis Condition: Stable Prescriptions: New Zofran 4 mg tablet 4 mg PO Q8H 3 Days Qty: 9 0RF lisinopril 10 mg tablet 10 mg PO DAILY Qty: 30 0RF No Action Excedrin Migraine 250-250-65 mg Tablet 2 tab PO Q6H PRN (Reason: Migraine Headache) 0RF Discharge Orders: Discharge ED (Routine); Ordered 12/29/21 Ordered By: Jax Bermeo Discharge Diet: Advance as tolerated Discharge Activity: Increase activity as tolerated Patient Instructions: Gastroenteritis (ED) Activity Restrictions/Additional Instructions: Follow-up with medical provider as directed. Take medications as prescribed. Return to the ER or your medical provider if condition worsens. Please read and understand discharge instructions. If any questions ask please. Stand Alone Forms: Work/School Release Coding Level of Care Code ED Family Nurse Practitioner for Chg Fwd Exam Comprehensive Documented by User: Nuno Millan DO 12/29/21 13:21 HPI - Weakness General: Chief complaint: Weakness Stated complaint: dehydration Time Seen by Provider: 12/29/21 08:18 [facility] ED PFSH: Medical History HTN (hypertension) with goal to be determined Surgical History Status post ORIF of fracture of ankle Family History Other Cancer Diabetes Stroke Social History Smoking and tobacco status: current every day smoker smokeless tobacco Smokeless tobacco user: chewing tobacco Alcohol intake: current Alcohol intake frequency: holidays/special occasions only History of recent travel: No Course Vital Signs: Vital signs: Vital Signs Temperature 97.7 F 12/29/21 08:26 Pulse Rate 72 12/29/21 10:00 Respiratory Rate 16 12/29/21 10:00 Blood Pressure 155/92 12/29/21 10:00 Pulse Oximetry 93 12/29/21 10:00 MDM - Weakness Medical Decision Making Patient presents with gastroenteritis symptoms. Vital signs are stable. Blood pressure slightly elevated and did come back down with lisinopril. Patient does not take blood pressure medication for the last year. Laboratory studies were negative for any concerning signs and there were no signs of dehydration. Patient was given lactated Ringer's. Patient encouraged to take medication directed follow-up primary care provider next week or 2. Patient can return to work on Sunday. Chart reviewed and patient discussed with midlevel. Agree with assessment and plan. Lab Data : 12/29/21 08:48 12/29/21 08:48 Laboratory Results WBC 5.4 10^3/uL (4.0-10.0) 12/29/21 08:48 RBC 5.17 10^6/uL (4.1-5.3) 12/29/21 08:48 Hgb 15.7 g/dL (11.7-16.6) 12/29/21 08:48 Hct 45.9 % (42.0-52.0) 12/29/21 08:48 MCV 88.8 fl (80-94) 12/29/21 08:48 MCH 30.4 pg (28.0-34.0) 12/29/21 08:48 MCHC 34.2 g/dL (30.0-36.0) 12/29/21 08:48 RDW 11.9 % (12.1-15.1) L 12/29/21 08:48 Plt Count 285 10^3/cmm (130-400) 12/29/21 08:48 MPV 9.7 fL (7.4-10.4) 12/29/21 08:48 Neut % (Auto) 53.0 % 12/29/21 08:48 Lymph % (Auto) 27.2 % 12/29/21 08:48 [place] % (Auto) 14.3 % 12/29/21 08:48 Eos % (Auto) 4.2 % 12/29/21 08:48 Baso % (Auto) 1.1 % 12/29/21 08:48 Neut # (Auto) 2.88 10^3/uL (1.8-7.7) 12/29/21 08:48 Lymph # (Auto) 1.5 10^3/uL (0.8-4.8) 12/29/21 08:48 [place] # (Auto) 0.8 10^3/uL (0.2-0.9) 12/29/21 08:48 Eos # (Auto) 0.2 10^3/uL (0.0-0.8) 12/29/21 08:48 Baso # (Auto) 0.1 10^3/uL (0.0-0.1) 12/29/21 08:48 Nucleated RBC % (auto) 0 % 12/29/21 08:48 Nucleated RBCs # 0.0 /100WBC 12/29/21 08:48 Sodium 137 mmol/L (136-145) 12/29/21 08:48 Potassium 3.9 mmol/L (3.5-5.1) 12/29/21 08:48 Chloride 104 mmol/L (98-107) 12/29/21 08:48 Carbon Dioxide 21 mmol/L (22-29) L 12/29/21 08:48 Anion Gap 15.9 (5-19) 12/29/21 08:48 BUN 13 mg/dL (6-20) 12/29/21 08:48 Creatinine 1.0 mg/dL (0.7-1.2) 12/29/21 08:48 GFR Calculation 83.2 mL/min (90-130) L 12/29/21 08:48 Glucose 111 mg/dL (65-115) 12/29/21 08:48 Calculated Osmolality 285 mOsm/kg (285-295) 12/29/21 08:48 Calcium 9.4 mg/dL (8.5-10.5) 12/29/21 08:48 Discharge Plan Discharge Patient Disposition: Home Clinical Impression: Gastroenteritis Condition: Stable Prescriptions: New Zofran 4 mg tablet 4 mg PO Q8H 3 Days Qty: 9 0RF lisinopril 10 mg tablet 10 mg PO DAILY Qty: 30 0RF No Action Excedrin Migraine 250-250-65 mg Tablet 2 tab PO Q6H PRN (Reason: Migraine Headache) 0RF Discharge Orders: Discharge ED (Routine); Ordered 12/29/21 Ordered By: Jax Bermeo Discharge Diet: Advance as tolerated Discharge Activity: Increase activity as tolerated Patient Instructions: Gastroenteritis (ED) Activity Restrictions/Additional Instructions: Follow-up with medical provider as directed. Take medications as prescribed. Return to the ER or your medical provider if condition worsens. Please read and understand discharge instructions. If any questions ask please. Stand Alone Forms: Work/School Release Coding Level of Care Code ED Family Nurse Practitioner for Mario Fwd Exam Comprehensive
[2021-12-29 08:57] LABS: Basophils # 0.1 10^3/uL (0.0-0.1); Basophils % 1.1 %; Eosinophils # 0.2 10^3/uL (0.0-0.8); Eosinophils % 4.2 %; Hematocrit 45.9 % (42.0-52.0); Hemoglobin 15.7 g/dL (11.7-16.6); Lymphocytes # 1.5 10^3/uL (0.8-4.8); Lymphocytes % 27.2 %; Mean Corpuscular HGB Conc 34.2 g/dL (30.0-36.0); Mean Corpuscular Hemoglobin 30.4 pg (28.0-34.0); Mean Corpuscular Volume 88.8 fl (80-94); Mean Platelet Volume 9.7 fL (7.4-10.4); Monocytes # 0.8 10^3/uL (0.2-0.9); Monocytes % 14.3 %; Neutrophils # 2.88 10^3/uL (1.8-7.7); Nucleated Red Blood Cells % 0 %; Platelet Count 285 10^3/cmm (130-400); Red Blood Count 5.17 10^6/uL (4.1-5.3); Red Cell Distribution Width 11.9 % (12.1-15.1); White Blood Count 5.4 10^3/uL (4.0-10.0)
[2021-12-29] MEDS: lisinopril 10 mg Tablet PO (09:09)
[2021-12-29] MEDS: lactated ringers 1,000 ML 999 ML IV (09:10)
--- NOTE | 2021-12-29 09:15 | PC.PHAR ---
pt states he use to take lisinopril and metformin pt states not taken for a year or longer states he hasnt been to the dr to get refills-pt states he takes no rx medications
[2021-12-29 09:19] LABS: Anion Gap 15.9 (5-19); Blood Urea Nitrogen 13 mg/dL (6-20); Calcium 9.4 mg/dL (8.5-10.5); Carbon Dioxide 21 mmol/L (22-29); Chloride 104 mmol/L (98-107); Creatinine Clr Calc Pharmacy 118.6537; Glomerular Filtration Rate 83.2 mL/min (90-130); Glucose 111 mg/dL (65-115); Osmolality Calculated 285 mOsm/kg (285-295); Potassium 3.9 mmol/L (3.5-5.1); Sodium 137 mmol/L (136-145)
[2021-12-29 10:00] VITALS: BP 155/92; PULSE 72; RESP 16; O2SAT 93
== END 2021-12-29 10:02 | disposition home or self-care (01) ==
PROVIDERS: Emergency Provider Nurse Practitioner Family
DX: K52.9 Noninfective gastroenteritis and colitis, unspecified (principal); I10 Essential (primary) hypertension; F17.220 Nicotine dependence, chewing tobacco, uncomplicated
CPT/HCPCS: 80048; 85025; 96360; 99283

== ENCOUNTER 2022-03-27 20:30 | Emergency (ER) | payer MEDICAID, SELFPAY ==
[2022-03-27 20:31] VITALS: BP 143/96; PULSE 84; RESP 18; TEMP 36.9; O2SAT 96
--- NOTE | 2022-03-27 20:38 | ED_ITS ---
HPI - Extremity Problem General: Chief complaint: Extremity Problem,Nontraumatic Stated complaint: Right Knee pain/swelling Time Seen by Provider: 03/27/22 20:38 History of Present Illness: 42-year-old male patient comes in today with complaints of right knee pain. Patient denies any injury. Patient does have a history of gout. Patient takes medications for allergies, blood pressure, and gout prevention. Patient reports usually he will get gout in his foot. 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 Patient appears well. Patient appears in mild to moderate pain. Associated symptoms: Deny chest pain Review of Systems General: Reports: 10 or more systems reviewed and unremarkable except in HPI and below Card: Denies: chest pain Resp: Denies: dyspnea Musc: Reports: joint pain (Right knee) Skin/Breast: Denies: erythema PFSH ED PFSH: Medical History HTN (hypertension) with goal to be determined Surgical History Status post ORIF of fracture of ankle Family History Other Cancer Diabetes Stroke Social History Smoking and tobacco status: current every day smoker smokeless tobacco Smokeless tobacco user: chewing tobacco Alcohol intake: current Alcohol intake frequency: holidays/special occasions only History of recent travel: No Physical Exam Const: COMMON NORMALS: alert Neck/C-Spine: COMMON NORMALS: full ROM Resp: COMMON NORMALS: normal respiratory effort and clear to auscultation bilaterally AUSCULTATION: clear to auscultation bilaterally Cardio: COMMON NORMALS: regular rate RATE: regular rate Extremity: RIGHT LOWER EXTREMITY: Yes knee joint (Tenderness to palpation of the anterior knee, minimal swelling) Right knee: Yes inspection, Yes palpation a nd Yes ROM Neuro: SENSORIUM/ORIENTATION: Yes alert Skin: COMMON NORMALS: no rashes or lesions noted GENERAL SKIN EXAM: no rashes or lesions noted Course Vital Signs: Vital signs: Vital Signs Temperature 98.4 F 03/27/22 20:31 Pulse Rate 84 03/27/22 20:31 Respiratory Rate 18 03/27/22 20:31 Blood Pressure 143/96 03/27/22 20:31 Pulse Oximetry 96 03/27/22 20:31 MDM - Extremity (Nontraumatic) Medical Decision Making 42-year-old male patient comes in today with complaints of pain and swelling to the right knee. On exam there is some mild swelling with no signs of redness or induration to the knee. Distal pulses and sensation are intact. Differential diagnosis includes osteoarthritis, bursitis, joint effusion, patellofemoral syndrome. X-ray was unremarkable except for possible mild to moderate joint effusion. Reviewed exam with patient with recommendations for treatment and follow-up. Recommended ice and heat for pain and discomfort. Patient was given dexamethasone 10 mg x 1 and 30 mg of ketorolac IM for pain. I encourage fluids and rest and activity as tolerated. Patient was written prescription for diclofenac and hydrocodone. Patient reported understanding of care plan need for follow-up with primary care for further instruction. No sign of infection or serious injury was noted at this time. Lab Data Radiology Impressions Knee X-Ray 03/27/22 20:44 IMPRESSION: 1. No acute bony findings. 2. Moderate knee joint effusion suspected. Discharge Plan Discharge Patient Disposition: Home Clinical Impression: Patella-femoral syndrome Qualifiers: Laterality: right Qualified Code(s): M22.2X1 - Patellofemoral disorders, right knee Condition: Stable Prescriptions: New diclofenac sodium 75 mg tablet,delayed release (DR/EC) 75 mg PO BID Qty: 20 0RF hydrocodone-acetaminophen 5-325 mg tablet 1 tab PO Q8H PRN (Reason: pain (scale score 7-10)) Qty: 7 0RF No Action All Day Allergy (cetirizine) 10 mg capsule 10 mg PO DAILY Qty: 30 1RF Excedrin Migraine 250-250-65 mg Tablet 2 tab PO Q6H PRN (Reason: Migraine Headache) 0RF lisinopril 10 mg tablet 10 mg PO DAILY Qty: 30 0RF Discharge Orders: Discharge ED (Routine); Ordered 03/27/22 Ordered By: Ganesh Sheikh Referrals: Angeline Dickey PA [Primary Care Provider] - Discharge Diet: Usual diet Discharge Activity: Increase activity as tolerated Patient Instructions: Knee Pain (ED) Activity Restrictions/Additional Instructions: Activity as tolerated. Use acetaminophen and diclofenac to help with pain. Use hydrocodone for severe pain. Avoid use of hydrocodone while operating equipment or driving as it will impede your decision-making and control. Follow-up with primary care in 1 week for recheck. Return to ER for new concerns. Stand Alone Forms: Work/School Release Coding Level of Care Code ED Fund Development Manager for Mario Fwd Exam Detailed
--- NOTE | 2022-03-27 20:44 | XRR_ITS ---
PROCEDURE INFORMATION: Exam: XR Right Knee Exam date and time: 03/27/2022 8:50 PM Age: 42 years old Clinical indication: Patient HX: Right knee pain and redness. Denies trauma. States he has gout, TECHNIQUE: Imaging protocol: XR Right knee. Views: 3 views. COMPARISON: No relevant prior studies available. FINDINGS: Bones/joints: Normal. Soft tissues: Moderate knee joint effusion suspected. XR/XR knee RT 3V* [id number] IMPRESSION: 1. No acute bony findings. 2. Moderate knee joint effusion suspected.
[2022-03-27] MEDS: ketorolac 30 mg/mL INJ IM (21:09)
[2022-03-27] MEDS: dexamethasone 10 mg/mL INJ IM (21:10)
[2022-03-27 21:53] VITALS: BP 131/81; PULSE 78; RESP 20; O2SAT 8
== END 2022-03-27 21:55 | disposition home or self-care (01) ==
PROVIDERS: Emergency Provider Nurse Practitioner Family; PCP Physician Assistant
DX: M22.2X1 Patellofemoral disorders, right knee (principal)
CPT/HCPCS: 73562; 96372; 99283; J1100; J1885

== ENCOUNTER → 2022-07-31 14:13 | Outpatient (BNVA) | payer MEDICAID, SELFPAY | PROVIDERS: PCP Physician Assistant; Visit Provider Podiatrist Foot & Ankle Surgery | DX: M25.571 Pain in right ankle and joints of right foot (principal); G89.29 Other chronic pain; T84.84XA Pain due to internal orthopedic prosthetic devices, implants and grafts, initial encounter; Y79.2 Prosthetic and other implants, materials and accessory orthopedic devices associated with adverse incidents | CPT/HCPCS: 73610 ==

== ENCOUNTER 2022-08-04 18:29 | Emergency (ER) | payer MEDICAID, SELFPAY ==
--- NOTE | 2022-08-04 18:30 | XRR_ITS ---
PROCEDURE INFORMATION: Exam: XR Right Ankle Exam date and time: 08/04/2022 7:08 PM Age: 42 years old Clinical indication: Pain; Right; Prior surgery; Surgery date: 6+ months; Surgery type: RT. Ankle; Additional info: Injury TECHNIQUE: Imaging protocol: Radiologic exam of the Right ankle. Views: 3 or more views. COMPARISON: CR (LOW EXM, ) 03/27/2022 8:50 PM FINDINGS: Bones/joints: Distal fibular orthopedic plate seen in place. Distal Achilles tendon degenerative calcification. 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 Soft tissues: Normal. XR/XR ankle RT min 3V* [id number] IMPRESSION: 1. Distal fibular orthopedic plate seen in place. 2. Distal Achilles tendon degenerative calcification. 3. 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
[2022-08-04 19:00] VITALS: BP 162/100; PULSE 82; RESP 16; TEMP 36.7; O2SAT 95; BMI 34.0
[2022-08-04 20:20] VITALS: O2SAT 93
--- NOTE | 2022-08-04 20:26 | XRR_ITS ---
PROCEDURE INFORMATION: Exam: XR Right Foot Exam date and time: 08/04/2022 8:35 PM Age: 42 years old Clinical indication: Pain; Foot; Right TECHNIQUE: Imaging protocol: Radiologic exam of the Right foot. Views: 3 or more views. COMPARISON: CR (LOW EXM, ) 08/04/2022 7:08 PM FINDINGS: Bones/joints: Distal fibular orthopedic plate seen in place. Distal Achilles tendon minimal degenerative calcification. Soft tissues: Normal. XR/XR foot RT min 3V* [id number] IMPRESSION: 1. Negative for acute bony abnormality. 2. Distal fibular orthopedic plate seen in place. 3. Distal Achilles tendon minimal degenerative calcification.
--- NOTE | 2022-08-04 20:26 | W.ED.EXTPRO ---
HPI - Extremity Problem General: Chief complaint: Extremity Injury, Lower Stated complaint: right ankle pain Time Seen by Provider: 08/04/22 20:11 Source: patient Mode of arrival: ambulatory Limitations: no limitations History of Present Illness: 42-year-old male who had an ankle fracture 98 had plates put in. He states he been having issues with that and is actually scheduled for surgery with Dr. Vaughan in 2 weeks to have the plates removed. He states that over the last week or so has been having increasing pain especially to the right foot and ankle he had some slight erythema. States the pain is much worse when he walks rates his pain 8 out of 10 currently denies any new injuries denies any fevers. Associated symptoms: Deny chest pain, fever(s) or rash Review of Systems Const: Denies: fever(s), chills, body aches or change in appetite Eyes: Denies: blurry vision or eye discomfort ENMT: Denies: throat pain or dental pain Card: Denies: chest pain Resp: Denies: dyspnea GI: Denies: abdominal pain, nausea, vomiting or diarrhea : Denies: dysuria Musc: Reports: extremity pain Skin/Breast: Denies: rash Neuro: Denies: headache(s) Psych: Denies: depression Jean-Paul/Lymph: Denies: easy bruising All/Imm: Denies: urticaria PFSH ED PFSH: Medical History HTN (hypertension) with goal to be determined Surgical History Status post ORIF of fracture of ankle Family History Other Cancer Diabetes Stroke Social History Smoking and tobacco status: never smoked Alcohol intake: current Alcohol intake frequency: holidays/special occasions only History of recent travel: No Physical Exam Const: COMMON NORMALS: no acute distress, patient oriented x3 and healthy appearing HENMT: COMMON NORMALS: normocephalic HEAD & SCALP: normocephalic Eye: COMMON NORMALS: conjunctivae normal CONJUNCTIVA: Yes conjunctivae normal Neck/C-Spine: COMMON NORMALS: supple Chest: COMMONS NORMALS: normal inspection of the chest and normal palpation of entire chest wall Resp: COMMON NORMALS: normal respiratory effort Cardio: COMMON NORMALS: regular rate and No murmurs present (Cardio) RATE: regular rate GI: INSPECTION: Yes normal to inspection Extremity: NARRATIVE EXTREMITY EXAM: Tenderness over the right foot with some slight cellulitis no skin breakdown no necrosis distal pulses intact Neuro: COMMON NORMALS: patient oriented x3, moves all extremities and no focal motor deficits Psych: COMMON NORMALS: mental status grossly normal, Normal thought process present and cooperative THOUGHT PROCESS: Normal thought process present Skin: COMMON NORMALS: no rashes or lesions noted and no wounds GENERAL SKIN EXAM: no rashes or lesions noted Course Vital Signs: Vital signs: Vital Signs Temperature 98.0 F 08/04/22 19:00 Pulse Rate 82 08/04/22 19:00 Respiratory Rate 20 H 08/04/22 20:43 Blood Pressure 162/100 08/04/22 19:00 Pulse Oximetry 93 08/04/22 20:43 Oxygen Delivery Me thod 08/04/22 19:00 MDM - Extremity (Nontraumatic) Medical Decision Making Patient presents with right foot pain likely from his hardware he is got some mild erythema over his foot no signs of any serious infection white count is normal we will start him on Keflex prescribing pain meds he is to follow-up with Dr. Vaughan return if worsening. Lab Data : 08/04/22 20:23 Radiology Impressions Ankle X-Ray 08/04/22 18:30 IMPRESSION: 1. Distal fibular orthopedic plate seen in place. 2. Distal Achilles tendon degenerative calcification. 3. 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 Foot X-Ray 08/04/22 20:26 IMPRESSION: 1. Negative for acute bony abnormality. 2. Distal fibular orthopedic plate seen in place. 3. Distal Achilles tendon minimal degenerative calcification. Laboratory Results WBC 8.7 10^3/uL (4.0-10.0) 08/04/22 20: RBC 4.90 10^6/uL (4.1-5.3) 08/04/22 20:23 Hgb 15.2 g/dL (11.7-16.6) 08/04/22 20: Hct 44.7 % (42.0-52.0) 08/04/22 20:23 MCV 91.2 fl (80-94) 08/04/22 20: MCH 31.0 pg (28.0-34.0) 08/04/22 20: MCHC 34.0 g/dL (30.0-36.0) 08/04/22 20: RDW 12.3 % (12.1-15.1) 08/04/22 20: Plt Count 283 10^3/cmm (130-400) 08/04/22 20: MPV 10.1 fL (7.4-10.4) 08/04/22 20: Neut % (Auto) 67.0 % 08/04/22 20: Lymph % (Auto) 19.5 % 08/04/22 20: [place] % (Auto) 11.1 % 08/04/22 20: Eos % (Auto) 1.5 % 08/04/22: Baso % (Auto) 0.7 % 08/04/22: Neut # (Auto) 5.82 10^3/uL (1.8-7.7) 08/04/22 20: Lymph # (Auto) 1.7 10^3/uL (0.8-4.8) 08/04/22 20: [place] # (Auto) 1.0 10^3/uL (0.2-0.9) H 08/04/22 20: Eos # (Auto) 0.1 10^3/uL (0.0-0.8) 08/04/22 20: Baso # (Auto) 0.1 10^3/uL (0.0-0.1) 08/04/22 20: Nucleated RBC % (auto) 0 % 08/04/22: Nucleated RBCs # 0.0 /100WBC 08/04/22 20: Discharge Plan Discharge Patient Disposition: Home Clinical Impression: Foot pain, right, Cellulitis Condition: Stable Prescriptions: New hydrocodone-acetaminophen 5-325 mg tablet 1 tab PO Q6H PRN (Reason: pain) Qty: 14 0RF cephalexin 500 mg capsule 500 mg PO TID 7 Days Qty: 21 0RF No Action All Day Allergy (cetirizine) 10 mg capsule 10 mg PO DAILY Qty: 30 1RF Excedrin Migraine 250-250-65 mg Tablet 2 tab PO Q6H PRN (Reason: Migraine Headache) lisinopril 10 mg tablet 10 mg PO DAILY Qty: 30 0RF diclofenac sodium 75 mg tablet,delayed release (DR/EC) 75 mg PO BID Qty: 20 0RF hydrocodone-acetaminophen 5-325 mg tablet 1 tab PO Q8H PRN (Reason: pain (scale score 7-10)) Qty: 7 0RF Discharge Orders: Discharge ED (Routine); Ordered 08/04/22 Ordered By: Lacy Huertas Referrals: Alpesh Vaughan DPM [Physician] - 4-7 days Angeline Dickey PA [Primary Care Provider] - Discharge Diet: Advance as tolerated Discharge Activity: Resume usual activity Patient Instructions: Swollen Joint (ED), Opioid Safety Coding Level of Care Code ED Product Safety Lead for Terryg Fwd Exam Comprehensive
[2022-08-04 20:29] LABS: Basophils # 0.1 10^3/uL (0.0-0.1); Basophils % 0.7 %; Eosinophils # 0.1 10^3/uL (0.0-0.8); Eosinophils % 1.5 %; Hematocrit 44.7 % (42.0-52.0); Hemoglobin 15.2 g/dL (11.7-16.6); Lymphocytes # 1.7 10^3/uL (0.8-4.8); Lymphocytes % 19.5 %; Mean Corpuscular Volume 91.2 fl (80-94); Mean Platelet Volume 10.1 fL (7.4-10.4); Monocytes % 11.1 %; Neutrophils # 5.82 10^3/uL (1.8-7.7); Nucleated Red Blood Cells % 0 %; Platelet Count 283 10^3/cmm (130-400); Red Cell Distribution Width 12.3 % (12.1-15.1); White Blood Count 8.7 10^3/uL (4.0-10.0)
[2022-08-04 20:43] VITALS: RESP 20; O2SAT 93
[2022-08-04] MEDS: vancomycin 1,000 MG in sodium chloride 0.9% 250 ML 250 MG IV (20:43)
[2022-08-04] MEDS: ondansetron 2 mg/ML SDV 2 mL 4 MG IVP (20:43)
[2022-08-04] MEDS: HYDROmorphone 1 mg/mL INJ 1 mL 0.5 MG IVP (20:43)
--- NOTE | 2022-08-04 20:45 | PC.NURSE ---
patient states that he forgot to tell dr ardon the reason for hardware removal is suspected bone cancer, dr ardon notified
[2022-08-04 21:31] VITALS: BP 150/92; RESP 19; O2SAT 93
[2022-08-04 21:49] VITALS: BP 138/91; PULSE 80; O2SAT 95
== END 2022-08-04 21:50 | disposition home or self-care (01) ==
PROVIDERS: Emergency Provider Emergency Medicine; PCP Physician Assistant
DX: M79.671 Pain in right foot (principal); L03.115 Cellulitis of right lower limb; I10 Essential (primary) hypertension
CPT/HCPCS: 73610; 73630; 85025; 96365; 96375; 99284; J1170; J2405; J3370; J7050

== ENCOUNTER 2022-08-18 11:25 | Day surgery (SDC) | payer MEDICAID, SELFPAY ==
[2022-08-17 15:48] VITALS: BMI 36.1
[2022-08-18] VITALS (12 sets, daily range): BP systolic 104–155; BP diastolic 68–111; PULSE 66–79; RESP 16–20; TEMP 36.1–36.4; O2SAT 91–96
[2022-08-18] MEDS: sodium chloride 0.9% 1,000 ML 30 ML IV (11:59)
[2022-08-18] MEDS: gabapentin 300 mg Capsule PO (12:00)
--- NOTE | 2022-08-18 12:12 | W.PM.OPSUD ---
Surgery/Procedure H&P Update DATE OF PROCEDURE: August 18, 2022 DATE H&P PERFORMED: 08/18/22 CHANGES TO PREVIOUS DOCUMENTATION: None PREOP DIAGNOSIS: Painful hardware right ankle PLANNED PROCEDURE: Operation Date: 08/18/22 12:45 Proposed Procedures p Deep hardware removal right ankle 12818,T84.84XA(Right) - Alpesh Vaughan DPM
--- NOTE | 2022-08-18 12:12 | PM.OPSURHP ---
Providers/Chief Complaint Primary Care Provider: Angeline Dickey Chief Complaint: surgery History of Present Illness Kalyan Shaw is a 42 year old male patient presenting to clinic for evaluation of right ankle pain. Patient states that he had ankle surgery back in [address] Dimas and the hardware is now causing issues with rubbing in tennis shoes and causing pain at the lateral side of his right ankle and the medial side is hurting as well. Patient states that his pain is at a 5/10 at this visit. Patient denies any subjective nausea, vomiting, fever, chills, shortness of breath or chest pain. Review of Systems General: Reports: 10 or more systems reviewed and unremarkable except in HPI and below Const: Denies: fever(s) or chills Eyes: Denies: change in vision Card: Denies: chest pain or palpitations Resp: Denies: dyspnea or productive cough GI: Denies: abdominal pain, nausea or vomiting : Denies: flank pain Musc: Reports: extremity pain Skin/Breast: Denies: rash Neuro: Denies: numbness in extremities, sensory changes or frequent falls Psych: Denies: suicidal ideation Jean-Paul/Lymph: Denies: easy bruising Medications/Allergies Home Medications Medication Instructions Recorded Confirmed Last Taken Type allopurinol 300 mg tablet 300 mg PO DAILY 08/17/22 08/18/22 08/16/22 History lisinopril 20 1 tab PO DAILY 08/17/22 08/18/22 08/17/22 History mg-hydrochlorothiazide 12.5 mg tablet nitroglycerin 0.4 mg sublingual 0.4 mg sublingual DIRECTED PRN 08/17/22 08/18/22 Unknown History tablet Chest Pain propranolol 20 mg tablet 20 mg PO DAILY 08/17/22 08/18/22 08/16/22 History Allergies Allergy/AdvReac Type Severity Reaction Status Date / Time Penicillins Allergy rash/itchy Verified 08/18/22 11:37 throat PFSH PFSH: Medical History HTN (hypertension) with goal to be determined Surgical History Status post ORIF of fracture of ankle Family History Other Cancer Diabetes Stroke Social History Smoking and tobacco status: never smoked Alcohol intake: current Alcohol intake frequency: holidays/special occasions only History of recent travel: No Dietary Habits: Caffeine: Yes Caffeine intake frequency: carbonated beverages Vital Signs Vitals Signs: Last Vital Signs Temp 97.5 F L 08/18/22 11:41 Pulse 75 08/18/22 11:41 Resp 17 08/18/22 11:41 BP 155/111 08/18/22 11:41 Pulse Ox 96 08/18/22 11:41 O2 Del Method 08/18/22 11:41 Weight: Weight last 48 hrs Weight 245 lb Physical Exam Narrative: EXAM NARRATIVE: Patient is alert and oriented ?3 and in no acute distress.? The following is a focused bilateral lower extremity exam. VASCULAR: Dorsalis pedis and posterior tibial arteries palpable +2.? Capillary refill time less than 3 seconds to the distal hallux bilaterally. Calf is supple and nontender proximally and distally.? No pedal edema appreciated.? Pedal hair growth present. NEUROLOGICAL: Epicritic and protopathic sensations grossly intact to the lower extremities.? +2 Achilles tendon reflex noted bilaterally.? Negative Tinel sign upon percussion of lower extremity nerves. DERMATOLOGICAL: Lower extremity skin is well-hydrated, normal texture and turgor.? There are no open sores or lesions noted to the lower extremities.? No erythema or ecchymosis present to the bilateral legs and feet. MUSCULOSKELETAL: Tenderness to palpation directly over cicatrix and prominent hardware at the right lateral malleolus.? No palpable mass along the course of the plantar fascia appreciated.? No pain to palpation along the course of the bilateral Achilles tendon.? No pain to palpation along the course posterior tibial tendon or peroneal tendons.? No pain with [id number] compression of calcaneus, bilaterally.? Muscle strength is 5/5 in all 3 cardinal planes pain-free without guarding to the foot and ankle, bilaterally. CARDIOVASCULAR: S1, S2, normal rate, normal rhythm. Dorsalis pedis and posterior tibial arteries palpable. LUNGS: Clear to auscltation, no use of acessory muscles, no crackles or wheezes. A&P Assessment and plan (1) Painful orthopaedic hardware: (2) Status post ORIF of fracture of ankle: (3) Right ankle pain: Plan Patient has pain when wearing work boots at right lateral ankle, there is palpable hardware that corresponds to the area of pain and irritation.? X-ray right ankle 3 view shows some minor backing out of screws within the plate this is subtle.? Most distal plate hole is empty patient states that 1 screw already backed out and was tenting the skin and this was removed by Dr. Dimas.? Patient requesting hardware removal.? I advised the patient this may fail to alleviate his pain I reviewed at length with the patient, the risks, potential complications, benefits, alternatives, expectations, and typical outcomes associated with the surgery. The risks and potential complications were explained in detail, including but not limited to infection, wound dehiscence or soft tissue complications, bleeding and hematoma, chronic edema, neuritis or nerve damage producing numbness or chronic pain, CRPS, failure to relieve pain or worsening pain, thick / painful / unsightly scar, limited motion / stiffness, malposition, delayed union, malunion, or nonunion, fracture, reaction to implants, anesthetic complications, venous thromboembolism, and deformity recurrence. I discussed the notion of no regrets with the patient as it pertains to complications and outcomes. The patient seemed to understand the nature of the proposed care and required convalescence. They asked appropriate questions, answered to their satisfaction. They are aware no guarantees can be made as to a satisfactory outcome and they understand there may be other possible unforeseen complications or outcomes not listed here that will be treated accordingly if they arise. There were no written or implied guarantees given to the patient. They gave informed consent to proceed. Deep hardware removal right ankle 08/18/2022, outpatient, local MAC versus LMA per anesthesia. [place], supine, 30 minutes. Coding Level of Care Code Acute Social Services Assistant for Chg Fwd Diagnoses Painful orthopaedic hardware T84.84XA Status post ORIF of fracture of ankle Z98.890; Z87.81 Right ankle pain M25.571
--- NOTE | 2022-08-18 12:18 | XR_ITS ---
WS: [id number] Right ankle, 3 views, 08/18/2022 Clinical Data: post op hardware removal Comparison: Right ankle, 08/04/2022 Findings: The plate on the distal lateral fibula and the orthopedic screws have been removed. There are subcutaneous surgical hortencia adjacent to the operative site. There is a calcification infe rior to the tip of the medial malleolus. XR/XR ankle RT min 3V* [id number] Impression: Removal of internal fixation hardware from distal lateral right fibula.
--- NOTE | 2022-08-18 12:24 | P.ANESASSM_ITS ---
Pre-Anesthetic Assessment Height/Weight: Height 1.75 m Weight 111.13 kg Temp Pulse Resp BP Pulse Ox O2 Del Method 97.5 F L 75 17 155/111 96 08/18/22 11:41 08/18/22 11:41 08/18/22 11:41 08/18/22 11:41 08/18/22 11:41 08/18/22 11:41 Preop Diagnosis: Painful hardware right ankle Operation Date: 08/18/22 12:45 Proposed Procedures p Deep hardware removal right ankle 04215,T84.84XA(Right) - Alpesh Vaughan DPM Familial anesthetic complications: none Was Beta Trip taken within 24 hours: Yes Was Clonidine taken within 24 hours: N/A Last intake: Intake Last Liquid Date 08/17/22 Last Liquid Time 22:30 Last Solid Date 08/17/22 Last Solid Time 22:00 Social Tobacco (chews) and No alcohol Exam alert, oriented x 3, clear to auscultation bilaterally and regular rate & rhythm Airway Submandibular: within normal limits Cervical ROM: within normal limits Mallampati: Class II Dentition: chipped Comments: Comments: poor dentition, [place] CV/HEM Hypertension weak aorta ? Hepatic fatty liver Metabolic Diabetes Mellitus and Morbid Obesity [facility] Lower Back Pain and Osteoarthritis/DJD Anesthetic Plan ASA status: 3 Anesthesia: General Medications/Allergies Home Medications Medication Instructions Recorded Confirmed Last Taken Type allopurinol 300 mg tablet 300 mg PO DAILY 08/17/22 08/18/22 08/16/22 History lisinopril 20 1 tab PO DAILY 08/17/22 08/18/22 08/17/22 History mg-hydrochlorothiazide 12.5 mg tablet nitroglycerin 0.4 mg sublingual 0.4 mg sublingual DIRECTED PRN 08/17/22 08/18/22 Unknown History tablet Chest Pain propranolol 20 mg tablet 20 mg PO DAILY 08/17/22 08/18/22 08/16/22 History hydrocodone 10 mg-acetaminophen 1 tab PO Q6H PRN pain 7 days #20 08/18/22 Unkno wn Rx 325 mg tablet tabs Allergies Allergy/AdvReac Type Severity Reaction Status Date / Time Penicillins Allergy rash/itchy Verified 08/18/22 11:37 throat Current Medications Generic Name Dose Route Start Last Admin Trade Name Freq PRN Reason Stop Dose Admin Sodium Chloride 1,000 mls @ 30 mls/hr 08/18/22 11:45 08/18/22 11:59 Sodium Chloride 0.9% IV 08/19/22 11:44 30 mls/hr .Q24H CARLOS Administration PFSH Anesthesia Medical History HTN (hypertension) with goal to be determined Surgical History Status post ORIF of fracture of ankle Family History Other Cancer Diabetes Stroke Social History Smoking and tobacco status: never smoked Alcohol intake: current Alcohol intake frequency: holidays/special occasions only History of recent travel: No Data Anesthesia Cardiac Studies: No Data to Display
[2022-08-18] MEDS: clindamycin 600 MG/50 ML PREMIX 100 MG IV (12:25)
[2022-08-18] MEDS: fentaNYL 50 mcg/mL INJ 2mL IVP (13:36)
--- NOTE | 2022-08-18 13:57 | ANE.PACU2 ---
Inpatient post-anesthesia follow up: Airway intact: Yes Vital signs: Temperature 97.3 F Pulse Rate 77 Respiratory Rate 18 Blood Pressure 131/97 Pulse Oximetry 96 Oxygen Delivery Me thod Room Air Oxygen Flow Rate 6 Fraction of Inspir ed Oxygen Hydration adequate: Yes Nausea and vomiting: No Pain level: 3 Mental status: Baseline
--- NOTE | 2022-08-18 16:39 | PM.OP ---
Operative Report Date of procedure: August 18, 2022 Pre-op diagnosis: Painful hardware right ankle Post-op diagnosis: Same Post-op findings: None Procedure done: Deep hardware removal right ankle. CPT code 00924 Implants: 2-0 Vicryl, 4-0 Vicryl, skin hortencia Specimens removed/disposition: 6 screws 1 plate Pathology: None Surgeon: Alpesh Vaughan D.P.M. Gleason Gear Generator: Lois Estimated blood loss: 5 See intraoperative documentation IV fluids: None Urine output: None Complications: None Brief History: Patient has pain when wearing work boots at right lateral ankle, there is palpable hardware that corresponds to the area of pain and irritation.? X-ray right ankle 3 view shows some minor backing out of screws within the plate this is subtle.? Most distal plate hole is empty patient states that 1 screw already backed out and was tenting the skin and this was removed by Dr. Dimas.? Patient requesting hardware removal.? I advised the patient this may fail to alleviate his pain I reviewed at length with the patient, the risks, potential complications, benefits, alternatives, expectations, and typical outcomes associated with the surgery. The risks and potential complications were explained in detail, including but not limited to infection, wound dehiscence or soft tissue complications, bleeding and hematoma, chronic edema, neuritis or nerve damage producing numbness or chronic pain, CRPS, failure to relieve pain or worsening pain, thick / painful / unsightly scar, limited motion / stiffness, malposition, delayed union, malunion, or nonunion, fracture, reaction to implants, anesthetic complications, venous thromboembolism, and deformity recurrence.? I discussed the notion of no regrets with the patient as it pertains to complications and outcomes. The patient seemed to understand the nature of the proposed care and required convalescence. They asked appropriate questions, answered to their satisfaction. They are aware no guarantees can be made as to a satisfactory outcome and they understand there may be other possible unforeseen complications or outcomes not listed here that will be treated accordingly if they arise. There were no written or implied guarantees given to the patient. They gave informed consent to proceed. Procedure: Under mild sedation the patient was brought to the operating room and remained on the gurney in supine position. A timeout was performed. Anesthesia was then administered by the anesthesia service. Local anesthesia was injected by myself total of 20 cc of 0.5% Marcaine plain and 10 cc of of Exparel to the right lateral leg. Well-padded pneumatic tourniquet applied to the right high calf. Right lower extremity was then scrubbed, prepped and draped utilizing normal aseptic technique. Right foot and ankle were exanguinated with an Esmarch bandage and tourniquet inflated to 250 mmHg. Over the previous cicatrix a #15 blade was utilized to incise skin and dissection carried down through subcutaneous tissue utilizing sharp and blunt technique. Care was taken to retract and preserve neurovascular and tendinous structures. All bleeders were ligated and cauterized as necessary. The hardware was directly visualized total of 6 screws explanted from bone and passed from operative field followed by removal and extraction of plate also passed from operative field. No remaining hardware visualized directly or with C arm. After having successfully explanted all deep hardware out of the right lateral malleolus the incision was irrigated with copious amounts of sterile saline solution. All rough edges were smoothed with a hand rasp followed by further irrigation. The incision was then closed utilizing 2-0 Vicryl at periosteum, 4-0 Vicryl subcutaneous tissue and skin hortencia. Smooth range of motion appreciated at the ankle without crepitus. The incision was then dressed with Adaptic, sterile 4 x 4, Kerlix and Obed wrap followed by application of a postop shoe. Tourniquet was deflated and a prompt hyperemic response was noted to the distal digits of the right foot. Patient tolerated the procedure and anesthesia well and was transferred to the PACU with vital signs stable and vascular status intact. Following a period of postoperative monitoring he will be discharged home and may be weightbearing as tolerated. He is to elevate his right foot while resting. He was prescribed hydrocodone to be taken judiciously as needed for pain. Will be following up in podiatry clinic for his first dressing change/nurse visit next week and follow-up with Dr. Vaughan in 2 weeks. He was provided discharge instructions and at home care instructions as well as follow-up and also provided with my cell phone number to contact me with any postoperative questions or concerns.
== END 2022-08-18 14:45 | disposition home or self-care (01) ==
PROVIDERS: PCP Physician Assistant; Visit Provider Podiatrist Foot & Ankle Surgery
PROC: (CPT 20680; principal; 2022-08-18 12:35)
DX: T84.84XA Pain due to internal orthopedic prosthetic devices, implants and grafts, initial encounter (principal); Z87.891 Personal history of nicotine dependence; I10 Essential (primary) hypertension; K76.0 Fatty (change of) liver, not elsewhere classified; E11.9 Type 2 diabetes mellitus without complications; E66.01 Morbid (severe) obesity due to excess calories; Z68.36 Body mass index [BMI] 36.0-36.9, adult
CPT/HCPCS: 20680; 73610; C9290; J2250; J2704; J3010; J3490; J7030; L3260

== ENCOUNTER → 2022-09-26 18:51 | Outpatient (BNVA) | payer MEDICAID, SELFPAY | PROVIDERS: PCP Physician Assistant; Visit Provider Registered Nurse Neonatal Intensive Care | DX: R50.9 Fever, unspecified (principal) | CPT/HCPCS: 87400 ==

== ENCOUNTER → 2022-10-16 18:10 | Outpatient (BNVA) | payer MEDICAID, SELFPAY | PROVIDERS: PCP Physician Assistant; Visit Provider Family Medicine | DX: M79.10 Myalgia, unspecified site (principal) | CPT/HCPCS: 87400 ==

== ENCOUNTER 2023-04-14 20:40 | Emergency (ER) | payer MEDICAID, SELFPAY ==
[2023-04-14 20:46] VITALS: BP 134/59; PULSE 60; RESP 22; TEMP 37.2; O2SAT 94; BMI 36.9
--- NOTE | 2023-04-14 21:23 | ECG_ITS ---
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 Measurements Intervals [place] Rate: 61 P: 81 [place]: 195 QRS: 50 QRSD: 85 T: 50 QT: 385 QTc: 390 Interpretive Statements SINUS RHYTHM WITH SINUS ARRHYTHMIA LOW QRS VOLTAGE IN PRECORDIAL LEADS [QRS DEFLECTION < 1.0 mV IN CHEST LEADS] POSSIBLE RIGHT VENTRICULAR CONDUCTION DELAY [RSR (QR) IN V1/V2] NONSPECIFIC T-WAVE ABNORMALITY Compared to ECG 10/06/2019 18:23:10 T-wave abnormality now present Electronically Signed On 04-16-2023 7:59:48 CDT by Liam Gutierrez M.D. [id number]
[2023-04-14] MEDS: morphine 4 mg/mL SDV 1 mL IVP (21:49)
[2023-04-14] MEDS: ondansetron 2 mg/ML SDV 2 mL 4 MG IVP (21:49)
--- NOTE | 2023-04-14 21:55 | CTR_ITS ---
PROCEDURE INFORMATION: Exam: CT Lumbar Spine Without Contrast Exam date and time: 04/14/2023 10:20 PM Age: 43 years old Clinical indication: Low back pain; Additional info: Severe back pain, numbness legs, urinary retention TECHNIQUE: Imaging protocol: Computed tomography of the lumbar spine without contrast. Radiation optimization: All CT scans at this facility use at least one of these dose optimization techniques: automated exposure control; mA and/or kV adjustment per patient size (includes targeted exams where dose is matched to clinical indication); or iterative reconstruction. REPORTING DATA: Count of CT and Cardiac NM exams in prior 12 months: This patient has received 0 known CTs and 0 known cardiac nuclear medicine studies in the 12 months prior to the current study. COMPARISON: MR lumbar spine wo con* [id number] 04/05/2020 9:11 AM RADIATION DOSE METRICS: Total DLP (mGy-cm): 1651.66 FINDINGS: Bones/joints: There is no fracture. Lumbar vertebra maintain their height. Is no fracture of the posterior elements. There is no focal osseous lesion. There is a transitional vertebra which will be described as a partly lumbarized S1. The most inferior rib-bearing vertebra is considered T12. T11-T12: : No disc bulge. No central or foraminal stenosis. T12-L1: No disc bulge. No central or foraminal stenosis. L1-L2: No significant disc bulge or herniation. No severe spinal canal stenosis. No significant neural foraminal narrowing. L2-L3: No significant disc bulge or herniation. No severe spinal canal stenosis. No significant neural foraminal narrowing. L3-L4: Mild disc bulge. There is ligament hypertrophy. There is prominent posterior epidural lipomatosis. These factors result in mild central stenosis. There is no foraminal stenosis. L4-L5: Disc bulge. Prominent posterior epidural lipomatosis. This results in moderate to severe central stenosis. There is asymmetric left facet spurring resulting in mild left foraminal stenosis. There is stenosis of the left lateral recess. L5-S1: Central to left paracentral disc protrusion. There is facet and ligament hypertrophy. There is prominent posterior epidural fat with moderate to severe central stenosis. S1-S2: This is the transitional level with rudimentary disc. No disc bulge. No central or foraminal stenosis. Soft tissues: No evidence of paraspinous or intraspinal soft tissue mass, hematoma or fluid collection. CT/CT lumbar spine wo con* [id number] IMPRESSION: Disc disease and posterior element hypertrophy including epidural lipomatosis resulting in moderate to severe central stenosis at L4-L5 and L5-S1. Central to left paracentral disc protrusion L5-S1. Recommend MRI for further evaluation.
--- NOTE | 2023-04-14 21:56 | W.ED.BACK ---
Documented by User: JAMIL Henry 04/15/23 04:33 HPI - Back Pain/Injury General: Chief Complaint: Back Pain/Injury Stated Complaint: low back pain Time Seen by Provider: 04/14/23 20:45 Source: patient Mode of arrival: EMS Limitations: no limitations History of Present Illness: Patient is a 43-year-old male who presents to ED today for evaluation of severe back pain. Patient states he and his significant other were engaging in sexual intercourse when he developed acute onset severe back pain radiating into his abdomen. Patient upon initial examination is clearly in discomfort. He complains he cannot feel his bilateral lower extremities. Patient states he feels like he needs to urinate but cannot. MD elicited complaint: back pain Onset (ago): hour(s) Timing: constant Severity: severe Similar Symptoms Previously: No Quality: sharp and stabbing Location: lumbar spine Radiation: abdomen Exacerbating factors: none Relieving factors: none Context: other (during intercourse) Associated symptoms: Reports abdominal pain and tingling/numbness/burning (reports he cannot feel bilateral LEs); Deny chills, fatigue, fever(s), nausea or vomiting Work related injury: No Review of Systems Const: Denies: fever(s), chills, body aches, fatigue or malaise Card: Denies: chest pain Resp: Denies: dyspnea GI: Reports: abdominal pain; Denies: nausea, vomiting or diarrhea : Reports: other (reports inability to urinate); Denies: flank pain Musc: Reports: back pain; Denies: neck pain, joint pain or joint swelling Neuro: Reports: numbness in extremities (states he cannot feel his lower extremities); Denies: headache(s) PFSH ED PFSH: Medical History HTN (hypertension) with goal to be determined Surgical History Status post ORIF of fracture of ankle Family History Other Cancer Diabetes Stroke Social History Smoking and tobacco status: never smoked Alcohol intake: current Alcohol intake frequency: holidays/special occasions only Substance/Drug Use: never Physical Exam Const: COMMON NORMALS: patient oriented x3, no limitations and alert GENERAL APPEARANCE: cooperative and in distress (patient uncomfortable secondary to pain) NUTRITIONAL APPEARANCE: obese ORIENTATION/CONSCIOUSNESS: Yes awake, Yes oriented to person, Yes oriented to place and Yes oriented to time HENMT: COMMON NORMALS: normocephalic and atraumatic HEAD & SCALP: normal to inspection, normocephalic and atraumatic Neck/C-Spine: COMMON NORMALS: full ROM, no lymphadenopathy, no meningeal signs, no JVD and No carotid bruits Chest: COMMONS NORMALS: normal inspection of the chest and normal palpation of entire chest wall Resp: COMMON NORMALS: normal respiratory effort and clear to auscultation bilaterally AUSCULTATION: clear to auscultation bilaterally Cardio: COMMON NORMALS: no JVD, regular rate and regular rhythm RATE: regular rate RHYTHM: regular rhythm GI: COMMON NORMALS: Normal to inspection, nondistended, normoactive bowel sounds present and Soft to palpation INSPECTION: Yes normal to inspection PALPATION: Yes Soft to palpation, Yes Tenderness to palpation present (GI) (lower abdomen), No Rigid due to palpation and Yes Other GI palpation findings present (exam limited by body habitus) Back/Pelvis: LUMBAR SPINE/LOWER BACK: Yes ROM limited, Yes lumbar spinal tenderness and No paraspinal muscle spasm Extremity: GENERAL: Yes normal exam except as noted OTHER: bilateral LEs are somewhat cool to the touch; no obvious pallor; I could not palpate DP/PT pulses on either extremity; he complained of profound sensory loss and could barely detect fairly hard pinch Neuro: MAKAYLA COMA SCALE: document GCS findings Makayla coma scale eye opening: Spontaneous [place] coma scale verbal response: Orientated [place] coma scale motor response: Obey commands Makayla coma scale total score: 15 COMMON NORMALS: patient oriented x3 SENSORIUM/ORIENTATION: Yes alert, Yes oriented to person, Yes oriented to place and Yes oriented to time MENINGEAL SIGNS: Yes no meningeal signs Course ED course: Patient was initially evaluated by myself. Immediately after initial history and physical exam I contacted Dr. Morris to evaluate patient as I was concerned for an aortic dissection given his history, significant amount of pain, and lack of palpable pulses to his lower extremities. At that point Dr. Morris and I attempted Doppler and ultrasound pulses of the lower extremity and could not locate. Decision was made for emergent CTA imaging. Please see Dr. Morris's notes in regards to patient's care as he assumed care of this patient following emergent findings on his CTA. ES Vital Signs: Vital signs: Vital Signs Temperature 98.9 F 04/15/23 02:25 Pulse Rate 73 04/15/23 02:25 Respiratory Rate 16 04/15/23 02:25 Blood Pressure 151/52 04/15/23 02:25 Pulse Oximetry 93 04/15/23 02:25 Oxygen Delivery Me thod Nasal Cannula 04/15/23 01:58 Oxygen Flow Rate 4 04/15/23 01:58 MDM - Back Pain/Injury Labs 04/14/23 20:20 04/14/23 20:20 Radiology Impressions Lumbar Spine CT 04/14/23 21:55 IMPRESSION: Disc disease and posterior element hypertrophy including epidural lipomatosis resulting in moderate to severe central stenosis at L4-L5 and L5-S1. Central to left paracentral disc protrusion L5-S1. Recommend MRI for further evaluation. Aorta w/Runoff CTA 04/14/23 22:14 IMPRESSION: 1. There is aortic dissection. The proximal extent of the dissection can not be determined as it extends into the thoracic aorta beyond the field of view. Recommend chest CTA. 2. The abdominal extent of the aorta includes the superior mesenteric artery with 50% stenosis. 3. The dissection includes the origin of the right renal artery which is severely stenotic with very poor perfusion of the right kidney. 4. 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 5. Lower extremity arteries are patent, although there is delayed flow due to the proximal occlusion. ADDENDUM: 04/14/23 [id number] THIS REPORT CONTAINS FINDINGS THAT MAY BE CRITICAL TO PATIENT CARE. The findings were verbally communicated via telephone conference with QUE MORRIS at 11:50 PM CDT on 04/14/2023. The findings were acknowledged and understood. Chest CTA 04/15/23 00:27 IMPRESSION: 1. Aortic dissection extending from the ascending thoracic aorta through the aortic arch and into the descending thoracic aorta, extending inferiorly off the field of view into the abdominal aorta, finding may potentially be chronic given provided history of aortic dissection, however, an acute dissection is not excluded. Finding is consistent with a type A dissection. 2. Ascending thoracic aorta dilated to 4.4 cm. 3. Hepatic steatosis. 4. Cardiomegaly. 5. Bilateral dependent atelectasis versus infiltrate. ADDENDUM: 04/15/23 0103 THIS REPORT CONTAINS FINDINGS THAT MAY BE CRITICAL TO PATIENT CARE. The findings were verbally communicated via telephone conference with QUE MORRIS at 1:01 AM CDT on 04/15/2023. The findings were acknowledged and understood. Laboratory Results WBC 10.9 10^3/uL (4.0-10.0) H 04/14/23 20:20 RBC 5.04 10^6/uL (4.1-5.3) 04/14/23 20:20 Hgb 15.3 g/dL (11.7-16.6) 04/14/23 20:20 Hct 46.1 % (42.0-52.0) 04/14/23 20:20 MCV 91.5 fl (80-94) 04/14/23 20:20 MCH 30.4 pg (28.0-34.0) 04/14/23 20:20 MCHC 33.2 g/dL (30.0-36.0) 04/14/23 20:20 RDW 12.0 % (12.1-15.1) L 04/14/23 20:20 Plt Count 293 10^3/cmm (130-400) 04/14/23 20:20 MPV 10.7 fL (7.4-10.4) H 04/14/23 20:20 Neut % (Auto) 44.6 % 04/14/23 20:20 Lymph % (Auto) 41.9 % 04/14/23 20:20 Wright % (Auto) 10.0 % 04/14/23 20:20 Eos % (Auto) 2.7 % 04/14/23 20:20 Baso % (Auto) 0.6 % 04/14/23 20:20 Neut # (Auto) 4.88 10^3/uL (1.8-7.7) 04/14/23 20:20 Lymph # (Auto) 4.6 10^3/uL (0.8-4.8) 04/14/23 20:20 Wright # (Auto) 1.1 10^3/uL (0.2-0.9) H 04/14/23 20:20 Eos # (Auto) 0.3 10^3/uL (0.0-0.8) 04/14/23 20:20 Baso # (Auto) 0.1 10^3/uL (0.0-0.1) 04/14/23 20:20 Nucleated RBC % (auto) 0 % 04/14/23 20:20 Nucleated RBCs # 0.0 /100WBC 04/14/23 20:20 Sodium 139 mmol/L (136-145) 04/14/23 20:20 Potassium 3.3 mmol/L (3.5-5.1) L 04/14/23 20:20 Chloride 100 mmol/L (98-107) 04/14/23 20:20 Carbon Dioxide 22 mmol/L (22-29) 04/14/23 20:20 Anion Gap 20.3 (5-19) H 04/14/23 20:20 BUN 11 mg/dL (6-20) 04/14/23 20:20 Creatinine 1.5 mg/dL (0.7-1.2) H 04/14/23 20:20 GFR Calculation 51.6 mL/min (90-130) L 04/14/23 20:20 Glucose 96 mg/dL (65-115) 04/14/23 20:20 Calculated Osmolality 287 mOsm/kg (285-295) 04/14/23 20:20 Calcium 9.4 mg/dL (8.5-10.5) 04/14/23 20:20 Total Bilirubin 0.7 mg/dL (0.15-1.2) 04/14/23 20:20 AST 33 U/L (0-40) 04/14/23 20:20 ALT 66 U/L (0-41) H 04/14/23 20:20 Alkaline Phosphatase 74 U/L (40-130) 04/14/23 20:20 Total Protein 7.1 g/dL (6.6-8.7) 04/14/23 20:20 Albumin 4.7 g/dL (3.5-5.2) 04/14/23 20:20 Globulin 2.4 g/dL (1.3-4.6) 04/14/23 20:20 Discharge Plan Discharge Patient Disposition: Xfer Short-Term Hosp Clinical Impression: Ascending aortic dissection Condition: Critical Referrals: Angeline Dickey PA [Primary Care Provider] - Coding Level of Care Code ED Tunnel Elastic Operator Chainstitch for Chg Fwd Documented by User: Que Morris DO 04/15/23 14:23 HPI - Back Pain/Injury General: Chief Complaint: Back Pain/Injury Stated Complaint: low back pain Time Seen by Provider: 04/14/23 20:45 PFSH ED PFSH: Medical History HTN (hypertension) with goal to be determined Surgical History Status post ORIF of fracture of ankle Family History Other Cancer Diabetes Stroke Social History Smoking and tobacco status: never smoked Alcohol intake: current Alcohol intake frequency: holidays/special occasions only Substance/Drug Use: never Physical Exam Neuro: MAKAYLA COMA SCALE: document GCS findings Makayla coma scale total score: 15 Course Vital Signs: Vital signs: Vital Signs Temperature 98.9 F 04/15/23 02:25 Pulse Rate 73 04/15/23 02:25 Respiratory Rate 16 04/15/23 02:25 Blood Pressure 151/52 04/15/23 02:25 Pulse Oximetry 93 04/15/23 02:25 Oxygen Delivery Az thod Nasal Cannula 04/15/23 01:58 Oxygen Flow Rate 4 04/15/23 01:58 MDM - Back Pain/Injury Medical Decision Making 43-year-old gentleman originally seen by Mrs. Bah?Samson RICHARDSON. I agree with her history, evaluation, and initial work-up. There was concern initially over the patient's severity of back pain, as well as inability to palpate pulses of his lower extremities, with lower extremity paresthesia. Doppler was not obtainable. Lower extremity arterial ultrasound performed by me at bedside was not pulsatile. Because of this, CTA of the abdomen and pelvis was ordered to check for aortic dissection. CT of the lumbar spine was also completed. Although the patient does have moderate to severe stenosis due to disc changes at L4-5, CTA of the abdomen and pelvis showed complete occlusion of the distal abdominal aorta at the bifurcation with reconstitution of common iliac arteries and slow flow. There is dissection above the area scanned. We immediately contacted vascular surgery at [facility]. He requested emergent CTA of the chest, as it is uncommon to have descending aortic dissection this high. CTA was performed, images were clouded immediately to [facility]. We spoke with vascular surgery again, as findings were consistent with type a ascending aortic dissection. Vascular CTS. She declined transfer and care of the patient, as they had 2 previous cases she considered emergent head of the patient. I then contacted [facility] for transfer, they are on ER and ICU divert. We then contacted the [facility] in [facility]. Essentially this is the next tertiary care center distance [place] in line. Spoke with Dr. Wilson from cardiothoracic surgery. He has concerns over the distance of transfer of this patient, as do I. However, he is willing to take in transfer. He states not to heparinize the patient of course. His goal blood pressure systolic for the patient is 145 or below. Currently blood pressure was 135/63. Patient's pain is more controlled after IV Dilaudid. We have attempted air transfer, but they have declined due to weather.. Contacting another service, to see if they will take the patient even by fixed wing given the distance of transfer. If not, he will have to go by ground. Images will be pushed to [facility]. Disc has been made as well. The situation regarding this patient's status is quite dire in that his mortality is very high without proper subspecialty ans surgical care, and morbidity/mortality is high even with definitive care. Labs 04/14/23 20:20 04/14/23 20:20 Radiology Impressions [address] Sp[address] CT 04/14/23 21:55 IMPRESSION: Disc disease and posterior element hypertrophy including epidural lipomatosis resulting in moderate to severe central stenosis at L4-L5 and L5-S1. Central to left paracentral disc protrusion L5-S1. Recommend MRI for further evaluation. Aorta w/Runoff CTA 04/14/23 22:14 IMPRESSION: 1. There is aortic dissection. The proximal extent of the dissection can not be determined as it extends into the thoracic aorta beyond the field of view. Recommend chest CTA. 2. The abdominal extent of the aorta includes the superior mesenteric artery with 50% stenosis. 3. The dissection includes the origin of the right renal artery which is severely stenotic with very poor perfusion of the right kidney. 4. 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 5. Lower extremity arteries are patent, although there is delayed flow due to the proximal occlusion. ADDENDUM: 04/14/23 3841 THIS REPORT CONTAINS FINDINGS THAT MAY BE CRITICAL TO PATIENT CARE. The findings were verbally communicated via telephone conference with QUE MORRIS at 11:50 PM CDT on 04/14/2023. The findings were acknowledged and understood. Chest CTA 04/15/23 00:27 IMPRESSION: 1. Aortic dissection extending from the ascending thoracic aorta through the aortic arch and into the descending thoracic aorta, extending inferiorly off the field of view into the abdominal aorta, finding may potentially be chronic given provided history of aortic dissection, however, an acute dissection is not excluded. Finding is consistent with a type A dissection. 2. Ascending thoracic aorta dilated to 4.4 cm. 3. Hepatic steatosis. 4. Cardiomegaly. 5. Bilateral dependent atelectasis versus infiltrate. ADDENDUM: 04/15/23 0103 THIS REPORT CONTAINS FINDINGS THAT MAY BE CRITICAL TO PATIENT CARE. The findings were verbally communicated via telephone conference with QUE MORRIS at 1:01 AM CDT on 04/15/2023. The findings were acknowledged and understood. Laboratory Results WBC 10.9 10^3/uL (4.0-10.0) H 04/14/23 20:20 RBC 5.04 10^6/uL (4.1-5.3) 04/14/23 20:20 Hgb 15.3 g/dL (11.7-16.6) 04/14/23 20:20 Hct 46.1 % (42.0-52.0) 04/14/23 20:20 MCV 91.5 fl (80-94) 04/14/23 20:20 MCH 30.4 pg (28.0-34.0) 04/14/23 20:20 MCHC 33.2 g/dL (30.0-36.0) 04/14/23 20:20 RDW 12.0 % (12.1-15.1) L 04/14/23 20:20 Plt Count 293 10^3/cmm (130-400) 04/14/23 20:20 MPV 10.7 fL (7.4-10.4) H 04/14/23 20:20 Neut % (Auto) 44.6 % 04/14/23 20:20 Lymph % (Auto) 41.9 % 04/14/23 20:20 Wright % (Auto) 10.0 % 04/14/23 20:20 Eos % (Auto) 2.7 % 04/14/23 20:20 Baso % (Auto) 0.6 % 04/14/23 20:20 Neut # (Auto) 4.88 10^3/uL (1.8-7.7) 04/14/23 20:20 Lymph # (Auto) 4.6 10^3/uL (0.8-4.8) 04/14/23 20:20 Wright # (Auto) 1.1 10^3/uL (0.2-0.9) H 04/14/23 20:20 Eos # (Auto) 0.3 10^3/uL (0.0-0.8) 04/14/23 20:20 Baso # (Auto) 0.1 10^3/uL (0.0-0.1) 04/14/23 20:20 Nucleated RBC % (auto) 0 % 04/14/23 20:20 Nucleated RBCs # 0.0 /100WBC 04/14/23 20:20 Sodium 139 mmol/L (136-145) 04/14/23 20:20 Potassium 3.3 mmol/L (3.5-5.1) L 04/14/23 20:20 Chloride 100 mmol/L (98-107) 04/14/23 20:20 Carbon Dioxide 22 mmol/L (22-29) 04/14/23 20:20 Anion Gap 20.3 (5-19) H 04/14/23 20:20 BUN 11 mg/dL (6-20) 04/14/23 20:20 Creatinine 1.5 mg/dL (0.7-1.2) H 04/14/23 20:20 GFR Calculation 51.6 mL/min (90-130) L 04/14/23 20:20 Glucose 96 mg/dL (65-115) 04/14/23 20:20 Calculated Osmolality 287 mOsm/kg (285-295) 04/14/23 20:20 Calcium 9.4 mg/dL (8.5-10.5) 04/14/23 20:20 Total Bilirubin 0.7 mg/dL (0.15-1.2) 04/14/23 20:20 AST 33 U/L (0-40) 04/14/23 20:20 ALT 66 U/L (0-41) H 04/14/23 20:20 Alkaline Phosphatase 74 U/L (40-130) 04/14/23 20:20 Total Protein 7.1 g/dL (6.6-8.7) 04/14/23 20:20 Albumin 4.7 g/dL (3.5-5.2) 04/14/23 20:20 Globulin 2.4 g/dL (1.3-4.6) 04/14/23 20:20 Critical Care Time Critical Care Time: Critical Care Time: Yes Total Critical Care Time: 70 Attestation: This case had a high probability of a clinically significant, sudden, or life threatening deterioration of this patient's condition which required my full and direct attention, intervention and personal management. Time is independent of any procedures performed. Discharge Plan Discharge Patient Disposition: Xfer Short-Term Hosp Clinical Impression: Ascending aortic dissection Condition: Critical Referrals: Angeline Dickey PA [Primary Care Provider] - Coding Level of Care Code ED Tunnel Elastic Operator Chainstitch for Mario Jones
--- NOTE | 2023-04-14 22:14 | CTR_ITS ---
PROCEDURE INFORMATION: Exam: CTA Abdominal Aorta and Bilateral Lower Extremities (Run-off) With Contrast Exam date and time: 04/14/2023 10:24 PM Age: 43 years old Clinical indication: Other: Numbess to legs, no pedal pulses; Abdominal pain; Acute; Additional info: Abd and back pain, no palp pulses to le TECHNIQUE: Imaging protocol: Computed tomographic angiography of the of the abdominal aorta, pelvis and bilateral lower extremities with contrast. 3D rendering (Not supervised by radiologist): MIP and/or 3D reconstructed images were created by the technologist. Radiation optimization: All CT scans at this facility use at least one of these dose optimization techniques: automated exposure control; mA and/or kV adjustment per patient size (includes targeted exams where dose is matched to clinical indication); or iterative reconstruction. Contrast material: OMNI 350; Contrast volume: 100 ml; Contrast route: INTRAVENOUS (IV); REPORTING DATA: Count of CT and Cardiac NM exams in prior 12 months: This patient has received 0 known CTs and 0 known cardiac nuclear medicine studies in the 12 months prior to the current study. COMPARISON: CR (LOW EXM, ) 08/04/2022 8:35 PM RADIATION DOSE METRICS: Total DLP (mGy-cm): 1283.67 FINDINGS: Aorta: There is an aortic dissection. This is seen within the descending thoracic aorta. It extends superior to the area scanned. Dissection continues into the upper abdominal aorta. Diameter is not aneurysmal. The flap is difficult to visualize inferior to the renal arteries, however there is complete abrupt occlusion of the distal abdominal aorta at the bifurcation. Celiac trunk and mesenteric arteries: Mild stenosis at origin of celiac artery. The intimal flap extends to the origin of the superior mesenteric artery with moderate, 50%, stenosis. Renal arteries: The flap extends to the origin of the right renal artery with severe stenosis. Right iliac arteries: Proximal occlusion of the right common iliac artery. There is reconstitution of flow in the right common iliac artery. Right femoral/popliteal arteries: No occlusion or significant stenosis. Right infrapopliteal arteries: No arterial stenosis is seen in the right lower leg. There is poor opacification of distal vessels likely due to delayed inflow due to the proximal occlusion. Left iliac arteries: Proximal occlusion of left common iliac artery with reconstitution. Left femoral/popliteal arteries: No occlusion or significant stenosis. Left infrapopliteal arteries: No arterial stenosis in the left lower leg. There is poor opacification of distal vessels likely due to delayed inflow due to proximal occlusion. Liver: The liver is normal. Gallbladder and bile ducts: The gallbladder is normal.No calcified calculi. Normal bile ducts. Pancreas: The pancreas is normal. Spleen: The spleen is normal. Adrenal glands: The adrenals are normal. Kidneys and ureters: There is poor perfusion of the right kidney. No focal renal abnormality. No hydronephrosis. Stomach and bowel: Unremarkable. No obstruction. No mucosal thickening. Appendix: The appendix is well visualized and is normal. Urinary bladder: Unremarkable. No mass. Reproductive: Unremarkable as visualized. Intraperitoneal space: Unremarkable. No free air. No significant fluid collection. Lymph nodes: No lymphadenopathy. Bones/joints: No acute fracture. No dislocation. Soft tissues: Unremarkable. CT/CT angio abd aorta runof [id number] IMPRESSION: 1. There is aortic dissection. The proximal extent of the dissection can not be determined as it extends into the thoracic aorta beyond the field of view. Recommend chest CTA. 2. The abdominal extent of the aorta includes the superior mesenteric artery with 50% stenosis. 3. The dissection includes the origin of the right renal artery which is severely stenotic with very poor perfusion of the right kidney. 4. 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 5. Lower extremity arteries are patent, although there is delayed flow due to the proximal occlusion.
[2023-04-14 22:17] LABS: Basophils # 0.1 10^3/uL (0.0-0.1); Basophils % 0.6 %; Eosinophils # 0.3 10^3/uL (0.0-0.8); Eosinophils % 2.7 %; Hematocrit 46.1 % (42.0-52.0); Hemoglobin 15.3 g/dL (11.7-16.6); Lymphocytes # 4.6 10^3/uL (0.8-4.8); Lymphocytes % 41.9 %; Mean Corpuscular HGB Conc 33.2 g/dL (30.0-36.0); Mean Corpuscular Hemoglobin 30.4 pg (28.0-34.0); Mean Corpuscular Volume 91.5 fl (80-94); Mean Platelet Volume 10.7 fL (7.4-10.4); Monocytes # 1.1 10^3/uL (0.2-0.9); Neutrophils # 4.88 10^3/uL (1.8-7.7); Neutrophils % 44.6 %; Nucleated Red Blood Cells % 0 %; Platelet Count 293 10^3/cmm (130-400); Red Blood Count 5.04 10^6/uL (4.1-5.3); White Blood Count 10.9 10^3/uL (4.0-10.0)
[2023-04-14 22:27] LABS: Alanine Aminotransferase 66 U/L (0-41); Albumin Level 4.7 g/dL (3.5-5.2); Alkaline Phosphatase 74 U/L (40-130); Anion Gap 20.3 (5-19); Aspartate Amino Transferase 33 U/L (0-40); Blood Urea Nitrogen 11 mg/dL (6-20); Calcium 9.4 mg/dL (8.5-10.5); Carbon Dioxide 22 mmol/L (22-29); Chloride 100 mmol/L (98-107); Globulin 2.4 g/dL (1.3-4.6); Glomerular Filtration Rate 51.6 mL/min (90-130); Glucose 96 mg/dL (65-115); Osmolality Calculated 287 mOsm/kg (285-295); Potassium 3.3 mmol/L (3.5-5.1); Sodium 139 mmol/L (136-145); Total Bilirubin 0.7 mg/dL (0.15-1.2); Total Protein 7.1 g/dL (6.6-8.7)
[2023-04-14 23:17] VITALS: RESP 18; O2SAT 95
[2023-04-14] MEDS: HYDROmorphone 1 mg/mL INJ 1 mL IVP (23:17)
[2023-04-14 23:22] VITALS: BP 178/63; PULSE 69; RESP 16; O2SAT 94
[2023-04-15] VITALS (9 sets, daily range): BP systolic 145–190; BP diastolic 47–78; PULSE 68–83; RESP 16; TEMP 37.2; O2SAT 91–97
--- NOTE | 2023-04-15 00:27 | CTR_ITS ---
PROCEDURE INFORMATION: Exam: CTA Chest With Contrast Exam date and time: 04/15/2023 12:39 AM Age: 43 years old Clinical indication: Pain; Chest pressure; Additional info: Back pain, HX of aortic dissection TECHNIQUE: Imaging protocol: Computed tomographic angiography of the chest with contrast. Exam focused on the arteries. 3D rendering (Not supervised by radiologist): MIP and/or 3D reconstructed images were created by the technologist. Radiation optimization: All CT scans at this facility use at least one of these dose optimization techniques: automated exposure control; mA and/or kV adjustment per patient size (includes targeted exams where dose is matched to clinical indication); or iterative reconstruction. Contrast material: OMNI 350; Contrast volume: 75 ml; Contrast route: INTRAVENOUS (IV); REPORTING DATA: Count of CT and Cardiac NM exams in prior 12 months: This patient has received 2 known CTs and 0 known cardiac nuclear medicine studies in the 12 months prior to the current study. COMPARISON: CR XR chest 1V portable [id number] 08/20/2021 8:41 PM RADIATION DOSE METRICS: Total DLP (mGy-cm): 1026.61 FINDINGS: Pulmonary arteries: Normal. No pulmonary emboli. Aorta: Aortic dissection extending from the ascending thoracic aorta through the aortic arch and into the descending thoracic aorta, extending inferiorly off the field of view into the abdominal aorta, finding may potentially be chronic given provided history of aortic dissection, however, an acute dissection is not excluded. Ascending thoracic aorta dilated to 4.4 cm. Lungs: Bilateral dependent atelectasis versus infiltrate. Pleural spaces: Unremarkable. No pneumothorax. No pleural effusion. Heart: Cardiomegaly. Lymph nodes: Unremarkable. No enlarged lymph nodes. Liver: Hepatic steatosis. Bones/joints: Unremarkable. No acute fracture. Soft tissues: Unremarkable. CT/CT angio chest [id number] IMPRESSION: 1. Aortic dissection extending from the ascending thoracic aorta through the aortic arch and into the descending thoracic aorta, extending inferiorly off the field of view into the abdominal aorta, finding may potentially be chronic given provided history of aortic dissection, however, an acute dissection is not excluded. Finding is consistent with a type A dissection. 2. Ascending thoracic aorta dilated to 4.4 cm. 3. Hepatic steatosis. 4. Cardiomegaly. 5. Bilateral dependent atelectasis versus infiltrate.
[2023-04-15] MEDS: iohexol 350 mg/mL 500 mL Btl (per mL) IV (00:49)
[2023-04-15] MEDS: HYDROmorphone 1 mg/mL INJ 1 mL IVP (01:03)
--- NOTE | 2023-04-15 01:11 | PC.NURSE ---
Pt is restless in bed. RN reminded pt the importance of staying still due to current condition. Pt verbalized understanding. Pt is currently laying on L side and not moving at this time.
[2023-04-15] MEDS: labetalol 5 mg/mL SDV 20mL 20 MG IVP ×2 (01:20→01:45)
--- NOTE | 2023-04-15 01:55 | PC.NURSE ---
RN called report to Matilda Brennan RN at [facility] ED. RN informed of nitroglycerin drip orders and EMS orders of systolic blood pressure to remain below 145. Receiving RN informed of current vitals. RN verbalized understanding. Pt stable at this time awaiting transport arrival.
[2023-04-15] MEDS: nitroglycerin drip 50 MG/250 ML PREMIX IV (02:10)
--- NOTE | 2023-04-15 02:23 | PC.NURSE ---
EMS arrived to transport pt. Pt is stable at this time with nitroglycerin drip running at 0.5 mcg/min. Current vitals in chart. Pt departed facility at 0225.
== END 2023-04-15 02:27 | disposition short-term general hospital (02) ==
PROVIDERS: Physician Assistant; Emergency Provider Emergency Medicine; PCP Physician Assistant
DX: I71.010 Dissection of ascending aorta (principal); I10 Essential (primary) hypertension
CPT/HCPCS: 51702; 71275; 72131; 75635; 80053; 85025; 93005; 96374; 96375; 96376; 99285; J1170; J2270; J2405; J3490; Q9967